=== PATIENT | female | born 1945 | race Caucasian/White ===

== ENCOUNTER → 2016-10-12 | Outpatient (CLI) | payer OTHER ==
[~2016-10-12] MED LIST: ACYC1CAP8 PO; ANAS1TAB19 PO; ATOR10TA88 PO; CEFD300C2 PO; CHOL100010 PO; CHOL2000 PO; CLC100 PO; CYCL60CA PO; DILT-115 PO; DILT-119 PO; DIPH-416 PO; DOCU100C31 PO; DXM/4 PO; FERR1TAB23 PO; LENA10CA3 PO; LPR25 PO; METO25TA56 PO; MGCL40 PO; NYSS5 PO; ONDA-63 PO; OXYC-57 PO; POLY335019 PO; ZOLE1INJ12 INJ; ZVR400 PO; [UNRECOGNIZED DRUG - CODE] PO
--- NOTE | 2016-10-12 15:04 | DIAGNOSTIC IMAGING REPORT ---
LEFT HIP UNILATERAL 2 VIEWS CLINICAL HISTORY: Left hip pain. History of breast carcinoma. COMPARISON: 07/16/2016 DISCUSSION: There is an internally fixated intertrochanteric left hip fracture. This is been fixated with a trochanteric nail and interlocking medullary uri. There is extensive heterotopic ossification. No acute fractures are visualized. No destructive lesions are visualized. IMPRESSION: No significant interval change. Postsurgical changes of an internally fixated intertrochanteric left hip fracture. Extensive heterotopic ossification. Electronically signed by: Miguel Leger M.D. 10/12/2016 3:02 PM Dictated Date/Time: 10/12/2016 3:01 PM
--- NOTE | 2016-10-12 15:07 | DIAGNOSTIC IMAGING REPORT ---
RIGHT HIP 2 VIEWS CLINICAL HISTORY: Right hip pain. History of breast cancer and myeloma. FINDINGS: AP and frog-leg views of the right hip are compared to study dated 07/16/2016. Correlation is made with skeletal survey dated 03/06/2016. The skeletal structures are heterogeneously osteopenic. No fracture is seen. Advanced arthritic change is present in the right hip, with bony sclerosis and subchondral cyst rotation present within the acetabulum and femoral head. There is a large sclerotic/blastic lesion present in the right bony pelvis with cortical irregularity. This is new from 03/06/2016 examination. Numerous small osteolytic lesions are suspected. Sclerotic changes identified in the right sacroiliac joint. Surgical clips are noted in the pelvis. The overlying soft tissues are within normal limits. IMPRESSION: 1. No fracture is identified. 2. Generalized osteopenia with advanced arthritic change noted in the right hip. 3. A large osteoblastic lesion is identified in the right bony pelvis. This is new from the 03/06/2016 examination and highly concerning for metastatic disease. 4. Numerous small osteolytic lesions are suspected. Electronically signed by: Andrew Galloway M.D. 10/12/2016 3:06 PM Dictated Date/Time: 10/12/2016 3:01 PM
== END | disposition home or self-care (01) ==
LOC: C.RAD 14:45
PROVIDERS: ATTEND Internal Medicine Hematology & Oncology
DX: C50.212 Malignant neoplasm of upper-inner quadrant of left female breast (principal); M89.9 Disorder of bone, unspecified; M85.88 Other specified disorders of bone density and structure, other site

== ENCOUNTER 2017-01-03 12:24 | Inpatient (IN) | payer OTHER ==
[~2017-01-03] VITALS: Ht 160 cm; Wt 61.2 kg
[~2017-01-03 12:24] MED LIST changes: +ACYC-57 PO; -ACYC1CAP8 PO; +ATOR10TA82 PO; -ATOR10TA88 PO; -CEFD300C2 PO; -CHOL2000 PO; -CLC100 PO; -CYCL60CA PO; -DILT-119 PO; -DIPH-416 PO; -FERR1TAB23 PO; -LENA10CA3 PO; -METO25TA56 PO; -MGCL40 PO; -NYSS5 PO; -ONDA-63 PO; -ZVR400 PO; -[UNRECOGNIZED DRUG - CODE] PO
--- NOTE | 2017-01-03 12:46 | EMERGENCY ROOM VISIT NOTE ---
History Report prepared by Suman: Isaias Alexander Under the Supervision of: Dr. Briseida Benitez M.D. First contact with patient: 12:31 Chief Complaint: WEAKNESS Stated Complaint: DECREASED APPETITE, DIARRHEA, LEG WEAKNESS History of Present Illness The patient is a 71 year old female who presents to the Emergency Room with complaints of worsening generalized weakness over the past several weeks. The patient feels like she "has no strength." She has not been eating or drinking well. The patient denies fevers, chest pain, shortness of breath, or focal weakness. She is being treated for multiple myeloma. The patient was at the cancer center today when she was referred to the ED. She is currently receiving chemotherapy. The patient denies history of heart disease or diabetes. The patient had a fall last in which she spent 10 hours on the floor. She did not hit her head when she fell, and states that she could not get up because she was feeling too weak. The patient lives alone but has a neighbor that checks on her. Source of History: patient Onset: several weeks ago Position: other (generalized) Quality: other (weakness) Timing: worsening Associated Symptoms: No fevers, No chest pain, No SOB Review of Systems See HPI for pertinent positives & negatives. A total of 10 systems reviewed and were otherwise negative. Past Medical & Surgical Medical Problems: (1) Benign hypertension (2) Biopsy of breast (3) Breast cancer (4) Hyperproteinemia (5) Left knee DJD (6) Osteopenia Family History No pertinent family history Social History Smoking Status: Former Smoker Alcohol Use: occasionally Housing Status: lives alone Occupation Status: employed Current/Historical Medications Scheduled Acyclovir (Acyclovir), 1 TAB PO BID Anastrozole (Arimidex), 1 MG PO QAM Atorvastatin (Lipitor), 1 TAB PO DAILY Cholecalciferol (Vitamin D3), 1 CAP PO DAILY Dexamethasone (Decadron), 4 TAB PO DIRECTED Megestrol Acetate (Megestrol Acetate), 20 ML PO DAILY Metoprolol Tartrate (Lopressor), 25 MG PO BID Ondansetron (Ondansetron HCl), 1 TAB PO BID Zoledronic Acid (Zometa), 4 MG INJ MONTHLY Scheduled PRN Polyethylene Glycol 3350 (Miralax), 17 GM PO DAILY PRN for Constipation Miscellaneous Medications Cyclophosphamide (Cyclophosphamide), 10 CAP PO Cyclophosphamide (Cyclophosphamide), 1 CAP PO Diphenoxylate/Atropine (Lomotil), 1 TAB PO Allergies Coded Allergies: Cat Dander (Unverified Allergy, Unknown, ITCHY EYES STUFFY NOSE, 01/03/17) NO KNOWN DRUG ALLERGIES (Unverified Allergy, Unknown, NONE, 01/03/17) Physical Exam Vital Signs Date Time Temp Pulse Resp B/P (MAP) Pulse Ox O2 Delivery O2 Flow Rate FiO2 01/03/17 14:58 89 01/03/17 14:20 89 18 108/65 93 Room Air 01/03/17 12:27 36.9 108 18 125/77 97 Room Air Physical Exam Vital signs reviewed. General: Chronically ill-appearing elderly female with diffuse atrophy. HEENT: No scleral icterus, PERRLA, neck supple. Atraumatic. Cardiovascular: Regular rate and rhythm, no extra sounds. Pulmonary: Clear to auscultation bilaterally, normal work of breathing. Abdomen: Soft, nontender, nondistended, positive bowel sounds. Musculoskeletal: Atraumatic, no peripheral edema. Neurologic: Patient awake alert and oriented x 3, equal strength in all 4 extremities although has a generalized weakness. Cranial nerves 2 through 12 grossly intact. Skin: Warm, dry, no rash Medical Decision & Procedures ER Provider Diagnostic Interpretation: X-ray results as stated below per interpretation by me and the radiologist: CHEST ONE VIEW PORTABLE CLINICAL HISTORY: weakness COMPARISON STUDY: 01/26/2016 FINDINGS: The cardiac and mediastinal contours remain stable. There is persistent aortic tortuosity. There is an equivocal 17 mm left basilar nodule. A follow-up PA and lateral study is recommended. There is no lobar consolidation.[ IMPRESSION: 17 mm left basilar nodule versus artifact. A follow-up PA and lateral study is recommended. Electronically signed by: Miguel Leger M.D. 01/03/2017 2:09 PM Dictated Date/Time: 01/03/2017 2:07 PM Laboratory Results Test 01/03/17 13:50 01/03/17 13:56 01/03/17 14:25 Nucleated RBC Absolute Count (auto) 0.02 K/uL (0-0) Nucleated Red Blood Cells % 0.4 % Prothrombin Time 10.6 SECONDS (9.0-12.0) Prothromb Time International Ratio 1.0 (0.9-1.1) Activated Partial Thromboplast Time 24.0 SECONDS (21.0-31.0) Partial Thromboplastin Ratio 0.9 Magnesium Level 2.3 mg/dl (1.8-2.4) Total Bilirubin 0.3 mg/dl (0.2-1) Direct Bilirubin < 0.1 mg/dl (0-0.2) Aspartate Amino Transf (AST/SGOT) 9 U/L (15-37) Alanine Aminotransferase (ALT/SGPT) 25 U/L (12-78) Alkaline Phosphatase 95 U/L (45-117) Total Creatine Kinase 18 U/L (26-192) Creatine Kinase MB < 0.5 ng/ml (0.5-3.6) Creatine Kinase MB Ratio (0-3.0) Total Protein 5.3 gm/dl (6.4-8.2) Albumin 2.5 gm/dl (3.4-5.0) 25-Hydroxy Vitamin D Total 16.0 ng/ml (30-100) Bedside Troponin I 0.000 ng/ml (0-0.045) Urine Color YELLOW Urine Appearance CLOUDY (CLEAR) Urine pH 6.5 (4.5-7.5) Urine Specific [place] 1.033 (1.000-1.030) Urine Protein 1+ (NEG) Urine Glucose (UA) 3+ (NEG) Urine Ketones NEG (NEG) Urine Occult Blood NEG (NEG) Urine Nitrite POS (NEG) Urine Bilirubin NEG (NEG) Urine Urobilinogen NEG (NEG) Urine Leukocyte Esterase NEG (NEG) Urine WBC (Auto) 10-30 /hpf (0-5) Urine RBC (Auto) 0-4 /hpf (0-4) Urine Hyaline Casts (Auto) 1-5 /lpf (0-5) Urine Epithelial Cells (Auto) >30 /lpf (0-5) Urine Bacteria (Auto) 4+ (NEG) Urine Renal Epithelial Cells /lpf (0-5) Date/Time Source Procedure Growth Status 01/03/17 14:25 Urine,Catheterized Urine Culture - Final Escherichia Coli Complete Laboratory results per my review. Medications Administered Medications (Trade) Dose Ordered Sig/Colette Route Start Time Stop Time Status Last Admin Dose Admin Sodium Chloride 250 ml @ 999 mls/hr Q16M STAT IV 01/03/17 13:17 01/03/17 13:32 DC 01/03/17 13:17 999 MLS/HR Sodium Chloride 1,000 ml @ 150 mls/hr Q6H40M STAT IV 01/03/17 13:17 01/03/17 18:29 DC 01/03/17 13:17 150 MLS/HR Ceftriaxone Sodium (Rocephin Inj) 1 gm NOW STAT IV 01/03/17 14:49 01/03/17 14:50 DC 01/03/17 15:22 1 GM ECG Indication: weakness Rate (beats per minute): 98 Rhythm: normal sinus Findings: no acute ischemic change, no ectopy, other (likely prevoius inferior infarct) ED Course 1240: Past medical records reviewed. The patient was evaluated in room C8. A complete history and physical examination was performed. 1317: NSS 1000 ml @ 150 mls/hr IV, NSS 250 ml @ 999 mls/hr IV. 1449: Rocephin 1 gm IV. 1520: Updated the patient. 152: Discussed the case with ALANA Golden Hospitalist. The patient will be evaluated. Medical Decision Differential diagnosis: Etiologies such as metabolic, infection, hypo/hyperglycemia, electrolyte abnormalities, cardiac sources, intracerebral event, toxicologic, neurologic, as well as others were entertained. Medication Reconciliation: I attest that I have personally reviewed the patient' s current medication list. Blood Pressure Screening: Patient was found to have normal blood pressure on screening and does not require follow-up. This pt was evaluated and appeared to be in no distress. IV access was obtained and lab work was drawn. Pt was placed on the gambling monitor. IV hydration was initiated. Pt was given IV ceftriaxone after UA is concerning for infection. Lab work reveals no elevation of WBC, an anemia. This is likely c/w multiple myeloma. Pt will be evaluated by the hospitalist service for admission and further management. Pt and family are aware of the plan and agree. Consults Time Called: 1519 Consulting Physician: ALANA Golden Hospitalist Returned Call: 1521 The patient will be evaluated. Impression Primary Impression: Weakness Additional Impression: UTI (urinary tract infection) Scribe Attestation The scribe's documentation has been prepared under my direction and personally reviewed by me in its entirety. I confirm that the note above accurately reflects all work, treatment, procedures, and medical decision making performed by me. Departure Information Dispostion Being Evaluated By Hospitalist Referrals Bret Rodriguez M.D. (PCP) Patient Instructions [facility] Problem Qualifiers
[2017-01-03] MEDS ORDERED: DIPH-416 PO (13:07)
[2017-01-03] MEDS ORDERED: ONDA-63 PO (13:07)
[2017-01-03] MEDS ORDERED: CHOL2000 PO (13:07)
[2017-01-03] MEDS ORDERED: [UNRECOGNIZED DRUG - CODE] PO (13:07)
[2017-01-03] MEDS ORDERED: ZVR400 PO (13:07)
[2017-01-03] MEDS ORDERED: MGCL40 PO (13:07)
[2017-01-03] MEDS ORDERED: CYCL60CA PO (13:07)
[2017-01-03] MEDS ORDERED: SODIUM CHLORIDE 0.9% 250ML 250 ML IV STA (13:17)
[2017-01-03] MEDS ORDERED: SODIUM CHLORIDE 0.9% 1000ML 1,000 ML IV STA (13:17)
[2017-01-03 14:01] LABS: HEMATOCRIT 33.7 % (37-47); MEAN CELL VOLUME 88.9 fL (80-100); MEAN CORPUSCULAR HEMOGLOBIN 27.4 pg (25-34); MEAN CORPUSCULAR HGB CONC 30.9 g/dl (32-36); MEAN PLATELET VOLUME 10.5 fL (7.4-10.4); PLATELET COUNT 170 K/uL (130-400); RED BLOOD COUNT 3.79 M/uL (4.2-5.4); WHITE BLOOD COUNT 5.64 K/uL (4.8-10.8)
--- NOTE | 2017-01-03 14:10 | DIAGNOSTIC IMAGING REPORT ---
CHEST ONE VIEW PORTABLE CLINICAL HISTORY: weakness COMPARISON STUDY: 01/26/2016 FINDINGS: The cardiac and mediastinal contours remain stable. There is persistent aortic tortuosity. There is an equivocal 17 mm left basilar nodule. A follow-up PA and lateral study is recommended. There is no lobar consolidation.[ IMPRESSION: 17 mm left basilar nodule versus artifact. A follow-up PA and lateral study is recommended. Electronically signed by: Miguel Leger M.D. 01/03/2017 2:09 PM Dictated Date/Time: 01/03/2017 2:07 PM
[2017-01-03 14:18] LABS: ALT/SGPT 25 U/L (12-78); BLOOD UREA NITROGEN 24 mg/dl (7-18); BUN/CREATININE RATIO 38.6 (10-20); CARBON DIOXIDE 25 mmol/L (21-32); CHLORIDE 106 mmol/L (98-107); CREATININE 0.63 mg/dl (0.60-1.20); GLUCOSE 171 mg/dl (70-99); MAGNESIUM 2.3 mg/dl (1.8-2.4); POTASSIUM 3.5 mmol/L (3.5-5.1); SODIUM 140 mmol/L (136-145)
[2017-01-03 14:23] LABS: ALKALINE PHOSPHATASE 95 U/L (45-117); AST/SGOT 9 U/L (15-37)
[2017-01-03 14:28] LABS: ANISOCYTOSIS PRESENT; BASO % 0.4 %; BASO ABS # 0.02 K/uL (0-0.2); COMPLETE YES; EOS % 0.2 %; IG% 1.8 %; LYMPH % 1.2 %; LYMPH ABS # 0.07 K/uL (1.2-3.4); NEUT % 94.4 %; TOXIC GRANULATION 3+
[2017-01-03] MEDS ORDERED: CEFTRIAXONE SOD INJ 1 GM ADDVIAL IV STA (14:49)
[2017-01-03 14:56] LABS: CALCIUM 8.4 mg/dl (8.5-10.1)
[2017-01-03 15:09] LABS: URINE APPEARANCE CLOUDY (CLEAR); URINE BILIRUBIN NEG (NEG); URINE COLOR YELLOW; URINE EPITHELIAL CELL AUTO >30 /lpf (0-5); URINE NITRITE POS (NEG); URINE PH 6.5 (4.5-7.5); URINE SPECIFIC GRAVITY 1.033 (1.000-1.030); UROBILINOGEN NEG (NEG); ZZURINE CULT IF INDIC CATH YES
[2017-01-03 15:18] LABS: MANUAL MICROSCOPIC REQUIRED? NO; REVIEW REQ? YES
[2017-01-03] MEDS ORDERED: DEXAMETHASONE 4 MG TAB PO SCH (16:15)
[2017-01-03] MEDS ORDERED: ACETAMINOPHEN 325 MG TAB PO PRN (16:15)
[2017-01-03] MEDS ORDERED: ONDANSETRON INJ 2 MG/ML 2 ML VIAL IV PRN (16:15)
--- NOTE | 2017-01-03 16:38 | History and Physical ---
History & Physical Date & Time of Service: Jan 03, 2017 at 16:27 Chief Complaint: Decreased Appetite, Diarrhea, Leg Weakness Primary Care Physician: Bret Rodriguez M.D. History of Present Illness Source: patient Pt is a 71 yo female who presents to ER with worsening weakness over past several weeks. Pt has a hx of multiple myeloma and has been undergoing treatments for past few weeks as she was diagnosed with MM last yr. Pt reports gradual weakness and states this AM, she had to lift her leg to get out of bed. Pt utilizes walker at home. Pt also reports poor appetite and states she has recently been started on megace. Pt follows with Dr Grace at the cancer center for the treatments and was actually due for a treatment today when pt was noted to be too weak. Pt denies any fevers, chills, but reports occasional N/V at home. No urinary sx, productive cough, abd pain or chest pain. Past Medical/Surgical History Medical Problems: (1) Benign hypertension Status: Chronic (2) Biopsy of breast Status: Resolved (3) Breast cancer Permanent Comment: Abnormal left breast mammogram Biopsy positive for invasive carcinoma 04/01/2013 grade 3 Vane receptor positive progesterone receptor positive HER-2/clark negative Status post partial mastectomy and sentinel lymph node biopsy Pathologic stage [id number] Oncotype DX score of 16 Status post completion of radiation therapy utilizing accelerated partial breast treatment completed 06/26/2013 received 3850 cGy Ongoing treatment with Arimidex Status: Resolved (4) Osteopenia Status: Chronic Family History No pertinent family history Social History Smoking Status: Former Smoker Occupational Status: employed Immunizations History of Influenza Vaccine: No History of Tetanus Vaccine?: UTD History of Pneumococcal: Yes History of Hepatitis B Vaccine: No Multi-Drug Resistant Organisms History of MDRO: No Allergies Coded Allergies: Cat Dander (Unverified Allergy, Unknown, ITCHY EYES STUFFY NOSE, 01/03/17) NO KNOWN DRUG ALLERGIES (Unverified Allergy, Unknown, NONE, 01/03/17) Home Medications Scheduled Acyclovir (Acyclovir), 1 TAB PO BID Anastrozole (Arimidex), 1 MG PO QAM Atorvastatin (Lipitor), 1 TAB PO DAILY Cholecalciferol (Vitamin D3), 1 CAP PO DAILY Dexamethasone (Decadron), 4 TAB PO DIRECTED Megestrol Acetate (Megestrol Acetate), 20 ML PO DAILY Metoprolol Tartrate (Lopressor), 25 MG PO BID Ondansetron (Ondansetron HCl), 1 TAB PO BID Zoledronic Acid (Zometa), 4 MG INJ MONTHLY Scheduled PRN Polyethylene Glycol 3350 (Miralax), 17 GM PO DAILY PRN for Constipation Miscellaneous Medications Cyclophosphamide (Cyclophosphamide), 10 CAP PO Cyclophosphamide (Cyclophosphamide), 1 CAP PO Diphenoxylate/Atropine (Lomotil), 1 TAB PO Review of Systems Constitutional: + weakness, + fatigue, No fever, No chills, No sweats, No weight loss ENT: No hearing loss, No unusual epistaxis, No nasal symptoms, No sore throat Respiratory: No cough, No sputum, No wheezing, No shortness of breath Cardiovascular: No chest pain, No orthopnea, No PND, No edema Abdomen: + nausea, No pain, No vomiting, No diarrhea, No constipation Musculoskeletal: No muscle pain, No swelling, No calf pain Genitourinary - Female: No dysuria, No urinary frequency, No urinary urgency, No urinary incontinence Neurologic: No memory loss, No paralysis, No weakness, No numbness/tingling Psychiatric: No depression symptoms, No anhedonism, No anxiety, No insomnia Endocrine: No fatigue, No excessive thirst Integumentary: No rash, No itch, No new/changing skin lesions, No color change Physical Exam Vital Signs Date Time Temp Pulse Resp B/P (MAP) Pulse Ox O2 Delivery O2 Flow Rate FiO2 01/03/17 16:13 93 16 113/63 90 Room Air 01/03/17 14:58 89 01/03/17 14:20 89 18 108/65 93 Room Air 01/03/17 12:27 36.9 108 18 125/77 97 Room Air General Appearance: WD/WN, no apparent distress Eyes: normal inspection, PERRL, EOMI, sclerae normal Neck: supple, no adenopathy, thyroid normal, no JVD Respiratory/Chest: chest non-tender, lungs clear, normal breath sounds, no respiratory distress Cardiovascular: regular rate, rhythm, no edema, no gallop, no JVD Abdomen/GI: normal bowel sounds, non tender, soft, no organomegaly Back: normal inspection, no CVA tenderness, no muscle spasm, normal range of motion Extremities/Musculoskelatal: normal inspection, no calf tenderness, normal capillary refill, no pedal edema 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2 % Monocytes (%) (Auto) 2.0 % Eosinophils (%) (Auto) 0.2 % Basophils (%) (Auto) 0.4 % Neutrophils # (Auto) 5.33 1.4-6.5 K/uL Lymphocytes # (Auto) 0.07 1.2-3.4 K/uL Monocytes # (Auto) 0.11 0.11-0.59 K/uL Eosinophils # (Auto) 0.01 0-0.5 K/uL Basophils # (Auto) 0.02 0-0.2 K/uL RDW Standard Deviation 61.3 36.4-46.3 fL RDW Coefficient of Variation 19.2 11.5-14.5 % Immature Granulocyte % (Auto) 1.8 % Immature Granulocyte # (Auto) 0.10 0.00-0.02 K/uL Nucleated RBC Absolute Count (auto) 0.02 0-0 K/uL Nucleated Red Blood Cells % 0.4 % Toxic Granulation 3+ Anisocytosis PRESENT Sodium Level 140 136-145 mmol/L Potassium Level 3.5 3.5-5.1 mmol/L Chloride Level 106 98-107 mmol/L Carbon Dioxide Level 25 21-32 mmol/L Anion Gap 9.0 3-11 mmol/L Blood Urea Nitrogen 24 7-18 mg/dl Creatinine 0.63 0.60-1.20 mg/dl Est Creatinine Clear Calc Drug Dose 69.7 ml/min Estimated GFR () 103.9 Estimated GFR (Non- 89.6 BUN/Creatinine Ratio 38.6 10-20 Random Glucose 171 70-99 mg/dl Calcium Level 8.4 8.5-10.1 mg/dl Magnesium Level 2.3 1.8-2.4 mg/dl Total Bilirubin 0.3 0.2-1 mg/dl Direct Bilirubin < 0.1 0-0.2 mg/dl Aspartate Amino Transf (AST/SGOT) 9 15-37 U/L Alanine Aminotransferase (ALT/SGPT) 25 12-78 U/L Alkaline Phosphatase 95 45-117 U/L Total Creatine Kinase 18 26-192 U/L Creatine Kinase MB < 0.5 0.5-3.6 ng/ml Creatine Kinase MB Ratio 0-3.0 Total Protein 5.3 6.4-8.2 gm/dl Albumin 2.5 3.4-5.0 gm/dl Bedside Troponin I 0.000 0-0.045 ng/ml Urine Color YELLOW Urine Appearance CLOUDY CLEAR Urine pH 6.5 4.5-7.5 Urine Specific [place] 1.033 1.000-1.030 Urine Protein 1+ NEG Urine Glucose (UA) 3+ NEG Urine Ketones NEG NEG Urine Occult Blood NEG NEG Urine Nitrite POS NEG Urine Bilirubin NEG NEG Urine Urobilinogen NEG NEG Urine Leukocyte Esterase NEG NEG Urine WBC (Auto) 10-30 0-5 /hpf Urine RBC (Auto) 0-4 0-4 /hpf Urine Hyaline Casts (Auto) 1-5 0-5 /lpf Urine Epithelial Cells (Auto) >30 0-5 /lpf Urine Bacteria (Auto) 4+ NEG Urine Renal Epithelial Cells 0-5 /lpf Microbiology Results 01/03/17 Urine Culture, Received Pending Impression Assessment and Plan Pt is a 71 yo female who is currently undergoing treatments for her MM presents with progressive weakness/decreased appetite over past few weeks Generalized weakness likely multifactorial from treatments in addition to deconditioning/?UTI and poor nutrition. Will consult PT/OT and dietary. Cont boost with all meals. Also cont megace which pt has recently been started on at home in addition to IVF. Will obtain urine cx and start on levaquin 750 mg IV daily. Will also obtain vit D level with hx of vit D def Mult myeloma - Consult Dr Grace regarding future tx. Dyslipidemia - Cont statin Hx of breast cancer - cont arimidex DVT ppx with heparin Pt is FULL CODE VTE Prophylaxis VTE Risk Assessment Done? Y/N: Yes Risk Level: Moderate
[2017-01-03 17:30] VITALS: BP 112/68; PULSE 96; TEMP 36.9; O2SAT 93; BMI 23.2
[2017-01-03] MEDS ORDERED: BOOST VANILLA PO SCH ×2 (17:40)
[2017-01-03] MEDS ORDERED: NURSING VERBAL MED ORDER ONE (18:45)
[2017-01-03 18:47] LABS: PARTIAL THROMBOPLASTIN RATIO 0.9; PROTHROMBIN TIME (PATIENT) 10.6 SECONDS (9.0-12.0)
[2017-01-03 19:08] VITALS: BP 102/67; PULSE 95; TEMP 36.6; O2SAT 90
[2017-01-03] MEDS: METOPROLOL TARTRATE 25 MG TAB PO SCH (20:24)
[2017-01-03] MEDS: LEVOFLOXACIN / D5W 750 MG in PREMIXED IN D5W 150 ML IV SCH (20:24)
[2017-01-03 20:25] VITALS: BP 122/75; PULSE 101
[2017-01-03] MEDS: MEGESTROL ACETATE 800 MG/20 ML UDP PO SCH (20:25)
[2017-01-03] MEDS: ACYCLOVIR 400 MG TAB PO SCH (20:25)
[2017-01-03] MEDS: HEPARIN SOD 5000 UNIT/0.5 ML CARP SQ SCH (22:14)
[2017-01-04] VITALS (8 sets, daily range): BP systolic 104–121; BP diastolic 66–77; PULSE 83–114; TEMP 36.8–37; O2SAT 92–95; BMI 23.0
[2017-01-04 05:47] LABS: HEMATOCRIT 29.2 % (37-47); MEAN CORPUSCULAR HEMOGLOBIN 28.7 pg (25-34); MEAN CORPUSCULAR HGB CONC 32.2 g/dl (32-36); MEAN PLATELET VOLUME 11.1 fL (7.4-10.4); PLATELET COUNT 167 K/uL (130-400); RED BLOOD COUNT 3.28 M/uL (4.2-5.4); WHITE BLOOD COUNT 5.22 K/uL (4.8-10.8)
[2017-01-04] MEDS: HEPARIN SOD 5000 UNIT/0.5 ML CARP SQ SCH ×3 (06:09→21:57)
[2017-01-04 06:14] LABS: ANISOCYTOSIS PRESENT; COMPLETE YES; DOHLE BODIES 1+; EOS % 0.2 %; IG% 1.9 %; LARGE PLATELETS 1+; LYMPH % 0.8 %; LYMPH ABS # 0.04 K/uL (1.2-3.4); MONO % 1.3 %; NEUT % 95.8 %; TOXIC GRANULATION 3+; VACUOLIZATION 1+
[2017-01-04 06:26] LABS: CREATININE 0.45 mg/dl (0.60-1.20)
[2017-01-04 06:27] LABS: BUN/CREATININE RATIO 41.1 (10-20); CALCIUM 7.7 mg/dl (8.5-10.1); POTASSIUM 3.4 mmol/L (3.5-5.1)
[2017-01-04] MEDS: ACYCLOVIR 400 MG TAB PO SCH ×2 (08:10→19:33)
[2017-01-04] MEDS: CHOLECALCIFEROL 1000 INTER.UNIT TAB PO SCH (08:11)
[2017-01-04] MEDS: METOPROLOL TARTRATE 25 MG TAB PO SCH ×2 (08:11→19:33)
[2017-01-04] MEDS: ATORVASTATIN 10 MG TAB PO SCH (08:11)
[2017-01-04] MEDS: ANASTROZOLE 1 MG TAB PO SCH (08:25)
[2017-01-04] MEDS: BOOST VANILLA PO SCH ×6 (08:30→17:00)
[2017-01-04] MEDS ORDERED: POTASSIUM CHLORIDE 10 MEQ TABCR PO STA (08:43)
[2017-01-04] MEDS: MEGESTROL ACETATE 800 MG/20 ML UDP PO SCH (10:39)
--- NOTE | 2017-01-04 10:50 | Medical Student: [facility] ---
Med Student Progress Note Date of Service Jan 04, 2017. Subjective Pt evaluation today including: conversation w/ patient, conversation w/ family (daughter), physical exam, chart review Pain: 0 PO Intake: poor Voiding: no voiding problems, no incontinence (but feelings of not emptying bladder) Ms Maria Esther Toro is a 71 yo female currently undergoing treatment for multiple myeloma at our cancer center who has become progressively weak over the past several weeks. She was due for another treatment yesterday, but was instead admitted due to profound weakness, fatigue, and loss of appetite. She can no longer walk around, and is wheelchair dependent. She is reliant on friends and home health for ADLs including bathing, changing clothing, cooking. She lives alone. Her daughter lives in [place]. She is unsure whether the weakness or loss of appetite occurred first, but notes they each make the other worse. She denies nausea, vomiting, headache, cough, shortness of breath, diarrhea, constipation, or chest pain. She is resting comfortably this morning. She ate some of her breakfast (<50%) and had some roast beef and mashed potatoes last night. She was started on megestrol two nights ago and notes some improvement in her appetite with the medication. She is fearful of returning to her home. Review of Systems Constitutional: + see HPI, + weakness, + fatigue, No fever, No chills, No sweats, No weight loss Eyes: No problem reported ENT: No problem reported Respiratory: No problem reported Cardiac: No problem reported Breast: No problem reported Abdomen: + problem reported (loss of appetite) Musculoskeletal: No problem reported Female : No problem reported Neurologic: No problem reported Psychiatric: No problem reported Heme: No problem reported Endo: No problem reported Skin: No problem reported Objective Vital Signs Date Time Temp Pulse Resp B/P (MAP) Pulse Ox O2 Delivery O2 Flow Rate FiO2 01/04/17 07:20 36.8 99 18 120/73 (89) 92 Room Air 01/04/17 03:46 36.9 88 18 113/66 (82) 94 Room Air 01/04/17 00:03 37.0 83 20 104/66 (79) 95 Room Air 01/03/17 23:59 Room Air 01/03/17 20:25 101 122/75 (91) 01/03/17 19:08 36.6 95 20 102/67 (79) 90 Room Air 01/03/17 17:30 36.9 96 16 112/68 93 Room Air 01/03/17 17:10 100 20 119/83 92 Room Air 01/03/17 16:13 93 16 113/63 90 Room Air 01/03/17 14:58 89 01/03/17 14:20 89 18 108/65 93 Room Air 01/03/17 12:27 36.9 108 18 125/77 97 Room Air Physical Exam Comments: Vitals: See above. Borderline tachycardia. General: Elderly female, tired appearing. No acute distress. HEENT: NCAT, EOMI, PERRLA. MMM. No anterior or posterior cervical lymphadenopathy. CV: Normal S1, S2. No MRG. Borderline tachycardic. Resp: Lungs clear to auscultation in upper and lower lobes bilaterally. Extremities: 4/5 strength in upper extremities, 3+/5 in lower extremities. Psych: Appears mildly depressed, but states no depression. Not anxious. AOx3 Laboratory Results Last 24 Hours Test 01/03/17 13:50 01/03/17 13:56 01/03/17 14:25 01/04/17 05:15 White Blood Count 5.64 K/uL 5.22 K/uL Red Blood Count 3.79 M/uL 3.28 M/uL Hemoglobin 10.4 g/dL 9.4 g/dL Hematocrit 33.7 % 29.2 % Mean Corpuscular Volume 88.9 fL 89.0 fL Mean Corpuscular Hemoglobin 27.4 pg 28.7 pg Mean Corpuscular Hemoglobin Concent 30.9 g/dl 32.2 g/dl Platelet Count 170 K/uL 167 K/uL Mean Platelet Volume 10.5 fL 11.1 fL Neutrophils (%) (Auto) 94.4 % 95.8 % Lymphocytes (%) (Auto) 1.2 % 0.8 % Monocytes (%) (Auto) 2.0 % 1.3 % Eosinophils (%) (Auto) 0.2 % 0.2 % Basophils (%) (Auto) 0.4 % 0.0 % Neutrophils # (Auto) 5.33 K/uL 5.00 K/uL Lymphocytes # (Auto) 0.07 K/uL 0.04 K/uL Monocytes # (Auto) 0.11 K/uL 0.07 K/uL Eosinophils # (Auto) 0.01 K/uL 0.01 K/uL Basophils # (Auto) 0.02 K/uL 0.00 K/uL RDW Standard Deviation 61.3 fL 62.0 fL RDW Coefficient of Variation 19.2 % 19.5 % Immature Granulocyte % (Auto) 1.8 % 1.9 % Immature Granulocyte # (Auto) 0.10 K/uL 0.10 K/uL Nucleated RBC Absolute Count (auto) 0.02 K/uL Nucleated Red Blood Cells % 0.4 % Toxic Granulation 3+ 3+ Anisocytosis PRESENT PRESENT Prothrombin Time 10.6 SECONDS Prothromb Time International Ratio 1.0 Activated Partial Thromboplast Time 24.0 SECONDS Partial Thromboplastin Ratio 0.9 Sodium Level 140 mmol/L 141 mmol/L Potassium Level 3.5 mmol/L 3.4 mmol/L Chloride Level 106 mmol/L 109 mmol/L Carbon Dioxide Level 25 mmol/L 26 mmol/L Anion Gap 9.0 mmol/L 6.0 mmol/L Blood Urea Nitrogen 24 mg/dl 18 mg/dl Creatinine 0.63 mg/dl 0.45 mg/dl Est Creatinine Clear Calc Drug Dose 69.7 ml/min 93.4 ml/min Estimated GFR () 103.9 116.0 Estimated GFR (Non- 89.6 100.1 BUN/Creatinine Ratio 38.6 41.1 Random Glucose 171 mg/dl 90 mg/dl Calcium Level 8.4 mg/dl 7.7 mg/dl Magnesium Level 2.3 mg/dl Total Bilirubin 0.3 mg/dl Direct Bilirubin < 0.1 mg/dl Aspartate Amino Transf (AST/SGOT) 9 U/L Alanine Aminotransferase (ALT/SGPT) 25 U/L Alkaline Phosphatase 95 U/L Total Creatine Kinase 18 U/L Creatine Kinase MB < 0.5 ng/ml Creatine Kinase MB Ratio Total Protein 5.3 gm/dl Albumin 2.5 gm/dl 25-Hydroxy Vitamin D Total 16.0 ng/ml Bedside Troponin I 0.000 ng/ml Urine Color YELLOW Urine Appearance CLOUDY Urine pH 6.5 Urine Specific [place] 1.033 Urine Protein 1+ Urine Glucose (UA) 3+ Urine Ketones NEG Urine Occult Blood NEG Urine Nitrite POS Urine Bilirubin NEG Urine Urobilinogen NEG Urine Leukocyte Esterase NEG Urine WBC (Auto) 10-30 /hpf Urine RBC (Auto) 0-4 /hpf Urine Hyaline Casts (Auto) 1-5 /lpf Urine Epithelial Cells (Auto) >30 /lpf Urine Bacteria (Auto) 4+ Urine Renal Epithelial Cells /lpf Toxic Vacuolation 1+ Dohle Bodies 1+ Large Platelets 1+ Hepatitis C Antibody Screen NEG Assessment and Plan Assessment and Plan: Ms Maria Esther Toro is a 71 yo female undergoing treatment for multiple myeloma with progressive fatigue over the past several weeks. She was admitted yesterday and has had some increase in appetite since admission. Assessment and plan are as follows: 1. Fatigue: Secondary to lack of appetite and tx for multiple myeloma. Will continue megestrol acetate 800mg dailiy for appetite stimulation, will conitnue with chocolate boost with meals. Acutely dehydrated with BUN: Creat 41. Will continue IV normal saline with 20meq Kcl. Patient is wheelchair dependent. PT/ OT evals. Discharge to [facility] following PT/OT evals and insurance approval. 2. Multiple Myeloma: Active, treatment held. Will defer to Dr. Ness. Continue prophylactic acyclovir 400mg bid. 3. History of breast cancer: Continue anastrazole 1mg qam. 4. Hyperlipidemia: Continue lipitor 10mg qd. 5. Hypovitaminosis D: 50,000 units given, continue weekly. Continue with 2000iu daily. 6. Persistent Tachycardia: Continue metoprolol tartrate 25mg bid. 7. UTI: Currently no dysuria, some feeling of not emptying bladder. Will get bladder scan. Continue levofloxacin 750mg qd pending culture results. 8. Anemia of chronic disease: Secondary to MM. H&H dropped slightly yesterday, likely due to hemodilution. Will continue to trend. 8. DVT Proph: Heparin 5000units q8 sq. 9. Dispo: Discharge to [facility] pending approval and PT/OT evals. Defer MM treatment to Dr. Ness, Heme/Onc. Normal meals as tolerated. Continued [facility] stay due to: inadequate po fluid intake, home environment unsafe for pt Discharge planning: rehab hospital
--- NOTE | 2017-01-04 11:03 | Progress Note ---
Subjective Date of Service: Jan 04, 2017. Subjective Pt evaluation today including: conversation w/ patient, physical exam, lab review, review of inpatient medication list Pain: no pain PO Intake: slight improvement Voiding: voiding difficulty (incomplete emptying? always needs to urinate) patient laying in bed, daughter at the bedside patient is profoundly weak, wants to go to rehab, cannot return home her appetite is getting a little better, just started the Megace also, c/o always needing to urinate, feels like maybe not emptying bladder discussed that we would obtain a bladder scan Problem List Medical Problems: (1) Dehydration Status: Acute (2) Fall Status: Acute (3) Intertrochanteric fracture of left femur Status: Acute (4) Left hip pain Status: Acute (5) UTI (urinary tract infection) Status: Acute (6) Weakness Status: Acute (7) Weakness Status: Acute Review of Systems Constitutional: + weakness, + fatigue Abdomen: + problem reported (poor appetite) Female : + urinary frequency, + problem reported (incomplete emptying?) All Other Systems: Reviewed and Negative Medications Current Inpatient Medications Medications (Trade) Dose Ordered Sig/Colette Route Start Time Stop Time Status Last Admin Dose Admin Heparin Sodium (Porcine) (Heparin Sq 5000 Unit/0.5ml) 5,000 unit Q8H SQ 01/03/17 22:00 02/02/17 21:59 01/04/17 06:09 5,000 UNIT Acetaminophen (Tylenol Tab) 650 mg Q4H PRN PO 01/03/17 16:15 02/02/17 16:14 Ondansetron HCl (Zofran Inj) 4 mg Q6H PRN IV 01/03/17 16:15 02/02/17 16:14 Acyclovir (Zovirax Tab) 400 mg BID PO 01/03/17 20:00 02/02/17 20:59 01/04/17 08:10 400 MG Anastrozole (Arimidex Tab) 1 mg QAM PO 01/04/17 08:00 02/03/17 08:59 01/04/17 08:25 1 MG Atorvastatin Calcium (Lipitor Tab) 10 mg DAILY PO 01/04/17 08:00 02/03/17 08:59 01/04/17 08:11 10 MG Dexamethasone (Decadron Tab) 16 mg UD PO 01/03/17 16:15 02/02/17 16:14 Future Hold Megestrol Acetate (Megace Susp) 800 mg DAILY PO 01/04/17 08:00 02/03/17 08:59 01/04/17 10:39 800 MG Metoprolol Tartrate (Lopressor Tab) 25 mg BID PO 01/03/17 20:00 02/02/17 20:59 01/04/17 08:11 25 MG Cholecalciferol (Vitamin D Tab) 2,000 inter.unit DAILY PO 01/04/17 08:00 02/03/17 08:59 01/04/17 08:11 2,000 INTER.UNIT Levofloxacin 750 mg/Prmx 150 ml @ 100 mls/hr DAILY@1900 IV 01/03/17 19:00 01/08/17 18:59 01/03/17 20:24 100 MLS/HR Enteral Nutritional Formula (Boost) 1 can TIDM PO 01/04/17 08:00 02/03/17 07:59 Ergocalciferol (Vitamin D Cap) 50,000 interunit TODAY@1200 ONCE PO 01/04/17 12:00 01/04/17 12:01 Potassium Chloride/Sodium Chloride 1,000 ml @ 100 mls/hr Q10H IV 01/04/17 09:45 02/03/17 09:44 UNV Objective Vital Signs Date Time Temp Pulse Resp B/P (MAP) Pulse Ox O2 Delivery O2 Flow Rate FiO2 01/04/17 07:20 36.8 99 18 120/73 (89) 92 Room Air 01/04/17 03:46 36.9 88 18 113/66 (82) 94 Room Air 01/04/17 00:03 37.0 83 20 104/66 (79) 95 Room Air 01/03/17 23:59 Room Air 01/03/17 20:25 101 122/75 (91) 01/03/17 19:08 36.6 95 20 102/67 (79) 90 Room Air 01/03/17 17:30 36.9 96 16 112/68 93 Room Air 01/03/17 17:10 100 20 119/83 92 Room Air 01/03/17 16:13 93 16 113/63 90 Room Air 01/03/17 14:58 89 01/03/17 14:20 89 18 108/65 93 Room Air 01/03/17 12:27 36.9 108 18 125/77 97 Room Air Physical Exam General Appearance: WD/WN, no apparent distress Neck: supple, no adenopathy, no JVD, trachea midline Respiratory/Chest: chest non-tender, lungs clear, normal breath sounds, no respiratory distress, no accessory muscle use Cardiovascular: regular rate, rhythm, no edema, no gallop, no JVD, no murmur Abdomen: normal bowel sounds, non tender, soft, no organomegaly Extremities: normal range of motion, non-tender, normal inspection, no pedal edema, no calf tenderness 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, alert, normal mood/affect, oriented x 3, + abnormal gait, + motor weakness Skin: normal color, warm/dry, no rash Lymphatic: no adenopathy Laboratory Results Last 24 Hours Test 01/03/17 13:50 01/03/17 13:56 01/03/17 14:25 01/04/17 05:15 White Blood Count 5.64 K/uL 5.22 K/uL Red Blood Count 3.79 M/uL 3.28 M/uL Hemoglobin 10.4 g/dL 9.4 g/dL Hematocrit 33.7 % 29.2 % Mean Corpuscular Volume 88.9 fL 89.0 fL Mean Corpuscular Hemoglobin 27.4 pg 28.7 pg Mean Corpuscular Hemoglobin Concent 30.9 g/dl 32.2 g/dl Platelet Count 170 K/uL 167 K/uL Mean Platelet Volume 10.5 fL 11.1 fL Neutrophils (%) (Auto) 94.4 % 95.8 % Lymphocytes (%) (Auto) 1.2 % 0.8 % Monocytes (%) (Auto) 2.0 % 1.3 % Eosinophils (%) (Auto) 0.2 % 0.2 % Basophils (%) (Auto) 0.4 % 0.0 % Neutrophils # (Auto) 5.33 K/uL 5.00 K/uL Lymphocytes # (Auto) 0.07 K/uL 0.04 K/uL Monocytes # (Auto) 0.11 K/uL 0.07 K/uL Eosinophils # (Auto) 0.01 K/uL 0.01 K/uL Basophils # (Auto) 0.02 K/uL 0.00 K/uL RDW Standard Deviation 61.3 fL 62.0 fL RDW Coefficient of Variation 19.2 % 19.5 % Immature Granulocyte % (Auto) 1.8 % 1.9 % Immature Granulocyte # (Auto) 0.10 K/uL 0.10 K/uL Nucleated RBC Absolute Count (auto) 0.02 K/uL Nucleated Red Blood Cells % 0.4 % Toxic Granulation 3+ 3+ Anisocytosis PRESENT PRESENT Prothrombin Time 10.6 SECONDS Prothromb Time International Ratio 1.0 Activated Partial Thromboplast Time 24.0 SECONDS Partial Thromboplastin Ratio 0.9 Sodium Level 140 mmol/L 141 mmol/L Potassium Level 3.5 mmol/L 3.4 mmol/L Chloride Level 106 mmol/L 109 mmol/L Carbon Dioxide Level 25 mmol/L 26 mmol/L Anion Gap 9.0 mmol/L 6.0 mmol/L Blood Urea Nitrogen 24 mg/dl 18 mg/dl Creatinine 0.63 mg/dl 0.45 mg/dl Est Creatinine Clear Calc Drug Dose 69.7 ml/min 93.4 ml/min Estimated GFR () 103.9 116.0 Estimated GFR (Non- 89.6 100.1 BUN/Creatinine Ratio 38.6 41.1 Random Glucose 171 mg/dl 90 mg/dl Calcium Level 8.4 mg/dl 7.7 mg/dl Magnesium Level 2.3 mg/dl Total Bilirubin 0.3 mg/dl Direct Bilirubin < 0.1 mg/dl Aspartate Amino Transf (AST/SGOT) 9 U/L Alanine Aminotransferase (ALT/SGPT) 25 U/L Alkaline Phosphatase 95 U/L Total Creatine Kinase 18 U/L Creatine Kinase MB < 0.5 ng/ml Creatine Kinase MB Ratio Total Protein 5.3 gm/dl Albumin 2.5 gm/dl 25-Hydroxy Vitamin D Total 16.0 ng/ml Bedside Troponin I 0.000 ng/ml Urine Color YELLOW Urine Appearance CLOUDY Urine pH 6.5 Urine Specific [place] 1.033 Urine Protein 1+ Urine Glucose (UA) 3+ Urine Ketones NEG Urine Occult Blood NEG Urine Nitrite POS Urine Bilirubin NEG Urine Urobilinogen NEG Urine Leukocyte Esterase NEG Urine WBC (Auto) 10-30 /hpf Urine RBC (Auto) 0-4 /hpf Urine Hyaline Casts (Auto) 1-5 /lpf Urine Epithelial Cells (Auto) >30 /lpf Urine Bacteria (Auto) 4+ Urine Renal Epithelial Cells /lpf Toxic Vacuolation 1+ Dohle Bodies 1+ Large Platelets 1+ Hepatitis C Antibody Screen NEG Assessment and Plan Pt is a 71 yo female who is currently undergoing treatments for her MM presents with progressive weakness/decreased appetite over past few weeks - Generalized weakness: multifactorial from MM chemotherapy, poor nutrition, UTI PT/OT consults, plan for rehab on d/c - UTI: E coli, continue Levaquin, follow up final sensitivities pt c/o frequent urge to urinate, may not be emptying bladder, check bladder scan, straight cath PRN - Vitamin D deficiency: 50,000 units given, plan for weekly treatment - Hypokalemia: 3.4 today, gave 20mEq PO x 1 and added 20 mEq to IV fluids - MM: follows with Dr. Grace - Hx of breast cancer - cont Arimidex DVT ppx with heparin Pt is FULL CODE Continued [facility] stay due to: inadequate po fluid intake, home environment unsafe for pt Discharge planning: rehab hospital
[2017-01-04] MEDS ORDERED: ERGOCALCIFEROL 50,000 INTER.UNIT CAP PO ONE (12:00)
[2017-01-04] MEDS: NSS + 20MEQ KCL 1000ML 1,000 ML IV SCH ×2 (12:34→23:00)
[2017-01-04] MEDS: LEVOFLOXACIN / D5W 750 MG in PREMIXED IN D5W 150 ML IV SCH (19:32)
[2017-01-04] MEDS ORDERED: BOOST VANILLA PO SCH ×2 (20:00)
--- NOTE | 2017-01-04 20:51 | ONCOLOGY CONSULTATION ---
DATE OF CONSULTATION: 01/04/2017 REASON FOR CONSULTATION: Generalized weakness. HISTORY OF PRESENT ILLNESS: Maria Esther is a pleasant 71-year-old female patient well known to [facility] with the diagnosis stage IIIA multiple myeloma established in January of 2016. The patient was in the midst of receiving a combination cyclophosphamide, bortezomib and dexamethasone. On the day of admission represented cycle 2, day 15. In the clinic, Maria Esther complained that she was profoundly weak and just overall not feeling well. It was decided at that time to hold that day's chemotherapy and send her to the Emergency Room for evaluation. On admission, she related poor appetite and had been recently started on Megace. She denied fevers, chills or sweats. She was not experiencing chest pain, shortness of breath, dyspnea or cough. Interestingly, she denied any urinary symptoms yet her urinalysis on admission is suggestive of an underlying UTI. She was subsequently placed on the oncology floor receiving IV hydration and Levaquin intravenously. PAST MEDICAL HISTORY: Again, significant for multiple myeloma, history of breast cancer, hypertension and osteopenia. MEDICATIONS: Prior to admission, acyclovir 400 mg p.o. b.i.d., anastrozole 1 mg p.o. every day, atorvastatin 1 tablet p.o. every day, cholecalciferol 1 tablet p.o. every day, dexamethasone 40 mg p.o. daily as instructed, Megace 20 mL p.o. every day, metoprolol 25 mg p.o. b.i.d., Zofran 1 tablet p.o. p.r.n. q. 8 hours for nausea, Zometa 4 mg IV monthly. ALLERGIES: CAT DANDER. SOCIAL HISTORY: The patient is a nonsmoker, nondrinker. FAMILY HISTORY: Noncontributory. REVIEW OF SYSTEMS: CONSTITUTIONAL: Most notably for generalized weakness and poor appetite. No fevers, chills or sweats. SKIN: No rashes or lesions. No history of dermatoses. HEENT: Denies headaches, lightheadedness or dizziness. No visual or hearing deficits. No sinus symptoms, sore throat or dysphagia. LYMPH: No history of lymphoproliferative disorder. CARDIAC: Negative for coronary artery disease, no angina or palpitations. PULMONARY: Negative for COPD. No shortness of breath, dyspnea or orthopnea. No cough or hemoptysis. GASTROINTESTINAL: Negative for abdominal pain, nausea, vomiting, diarrhea or constipation, hematochezia or melenotic stools. GENITOURINARY: No hematuria, dysuria, urinary incontinence; however, a urinalysis reported out multiple red cells and nitrites. MUSCULOSKELETAL: No skeletal pain per se. No arthralgias or myalgias. ENDOCRINE: Negative for diabetes or thyroid disease. NEUROLOGIC: Negative for seizure, stroke, or migraine headache. HEMATOLOGIC: Positive for anemia. I suspect is attributable to current chemotherapeutic regimen. PHYSICAL EXAMINATION: GENERAL: Maria Esther is a pleasant 71-year-old female patient in no acute distress. VITAL SIGNS: Temperature 37, pulse 87, respirations 18, blood pressure 113/71. SKIN: Warm, dry, noncyanotic without petechia, rash or ecchymosis. HEAD: Atraumatic, normocephalic. EYES: PERRLA, EOMI. Sclerae are nonicteric. No conjunctival injection. Nares are patent without rhinorrhea or discharge. Throat is clear. Tongue is midline. Mucous membranes are moist. NECK: Supple without JVD or thyromegaly. LYMPH: No cervical, supraclavicular, axillary palpable nodes. HEART: Regular rate and rhythm. No clicks, rubs, murmurs, gallops. LUNGS: Clear to auscultation bilaterally. ABDOMEN: Soft, nontender, nondistended, without palpable hepatosplenomegaly. EXTREMITIES: No calf tenderness or swelling. No clubbing, cyanosis or edema. NEUROLOGIC: She is awake, alert and oriented x3. Cranial nerves II-XII are intact. No gross motor or sensory deficits are noted. LABORATORY DATA: WBC count 5220, hemoglobin 9.4, and platelet count 167,000. Sodium 141, potassium 3.4, chloride 109, carbon dioxide 26, BUN 18, creatinine 0.45. IMAGING DATA: Chest x-ray, 17 mm left basilar nodule. Followup PA and lateral study is recommended. IMPRESSION: 1. Failing performance status. 2. Urinary tract infection. 3. Anemia secondary to chemotherapeutic effect. 4. Anorexia. PLAN: I visited Maria Esther at bedside today. She is feeling better after receiving initial antibiotics and IV hydration. Her appetite has picked up as well. Maria Esther is not anxious to be discharged and actually requesting to go to a rehabilitation facility. I spoke to her regarding where we go with chemo as I believe a lot of what is going on with her may be attributable to her current regimen. First and foremost, pulsing high dose dexamethasone can result in transient addisonian episodes. Additionally, cyclophosphamide can also contribute to fatigue and weakness. Thus, dose adjustments may be necessary going forward. I agree with her current medical management which includes physical and occupational therapy. I have no objection for Maria Esther going to [facility]. I will make arrangements to see Maria Esther back when her next cycle is to begin and discuss dose adjustment at that time. I have nothing further to add. Thank you very much for allowing me to participate in her care. If you have any questions or concerns, feel free to contact me at any time. MTDD
[2017-01-05 00:08] VITALS: BP 106/70; PULSE 92; TEMP 36.8; O2SAT 94
[2017-01-05 03:33] VITALS: BP 116/75; PULSE 102; TEMP 37; O2SAT 92
[2017-01-05] MEDS: HEPARIN SOD 5000 UNIT/0.5 ML CARP SQ SCH ×3 (05:41→22:00)
[2017-01-05 06:53] LABS: MEAN CELL VOLUME 88.7 fL (80-100); MEAN CORPUSCULAR HEMOGLOBIN 29.1 pg (25-34); MEAN CORPUSCULAR HGB CONC 32.8 g/dl (32-36); MEAN PLATELET VOLUME 10.4 fL (7.4-10.4); PLATELET COUNT 163 K/uL (130-400); RED BLOOD COUNT 3.27 M/uL (4.2-5.4); WHITE BLOOD COUNT 4.77 K/uL (4.8-10.8)
[2017-01-05 07:08] VITALS: BMI 23.9
[2017-01-05 07:26] LABS: BUN/CREATININE RATIO 28.3 (10-20); CALCIUM 7.5 mg/dl (8.5-10.1); CREATININE 0.46 mg/dl (0.60-1.20); POTASSIUM 4.1 mmol/L (3.5-5.1)
[2017-01-05 07:49] VITALS: BP 120/78; PULSE 100; TEMP 36.9; O2SAT 92
[2017-01-05 07:51] LABS: COMPLETE YES; EOS % 0.4 %; IG% 1.9 %; LYMPH % 1.3 %; LYMPH ABS # 0.06 K/uL (1.2-3.4); MONO % 2.1 %; NEUT % 94.3 %; TOXIC GRANULATION 2+
[2017-01-05] MEDS: BOOST VANILLA PO SCH ×6 (08:00→16:34)
[2017-01-05] MEDS: CHOLECALCIFEROL 1000 INTER.UNIT TAB PO SCH (08:37)
[2017-01-05] MEDS: MEGESTROL ACETATE 800 MG/20 ML UDP PO SCH (08:39)
[2017-01-05] MEDS: ANASTROZOLE 1 MG TAB PO SCH (08:39)
[2017-01-05] MEDS: METOPROLOL TARTRATE 25 MG TAB PO SCH ×2 (09:53→20:23)
[2017-01-05] MEDS: ACYCLOVIR 400 MG TAB PO SCH ×2 (09:53→20:23)
[2017-01-05] MEDS: ATORVASTATIN 10 MG TAB PO SCH (09:53)
[2017-01-05] MEDS: NSS + 20MEQ KCL 1000ML 1,000 ML IV SCH ×2 (09:53→17:20)
[2017-01-05] MEDS: CEFTRIAXONE SOD INJ 1 GM in DEXTROSE 5% ADD-VANTAGE 50ML 50 ML IV SCH (09:54)
--- NOTE | 2017-01-05 11:54 | HEME/ONC PROGRESS NOTE ---
DATE: 01/05/2017 DATE: 01/05/2017. DIAGNOSES: 1. Declining performance status. 2. Urinary tract infection. 3. Anemia secondary to chemotherapeutic effect. 4. Anorexia. HOSPITAL COURSE: Maria Esther is a pleasant 71-year-old female patient well known to me with a diagnosis of stage IIIa multiple myeloma established in January 2016. The patient was in the middle of her second cycle of combination of cyclophosphamide, bortezomib and dexamethasone. She had presented to the clinic complaining of profound weakness and decided to have her reevaluated and admitted. Clinically, Maria Esther seems to be doing a bit better but prefers not to be discharged home and wishes to go to rehabilitation facility. Her chemotherapy is on hold and plan to see her back prior to her next cycle and reevaluated for possible dose reduction. She is currently being treated for UTI. She offers no further complaints otherwise. PHYSICAL EXAMINATION: GENERAL: She is in no acute distress. VITAL SIGNS: Temperature 36.9, pulse 100, respirations 18, blood pressure 120/78. SKIN: Without rash or lesion. HEAD, EYES, EARS, NOSE, AND THROAT: Oral mucosa without erythema or ulceration. HEART: Regular rate and rhythm. LUNGS: Clear to auscultation bilaterally. ABDOMEN: Soft, nontender, nondistended. EXTREMITIES: No clubbing, cyanosis or edema. NEUROLOGIC EXAMINATION: Grossly intact. LABORATORY DATA: WBC counts 4770, hemoglobin 9.5, platelet count 163,000, sodium 140, potassium 4.1, chloride 110, carbon dioxide 21, creatinine 0.46, BUN 13. IMPRESSION: 1. Declining performance status. 2. Urinary tract infection. 3. Anemia secondary to chemotherapeutic effect. 4. Anorexia. PLAN: Maria Esther was seen again at bedside. Clinically, seems to be doing a bit better. She is ambulating with some assistance and currently under evaluation by physical therapy. I have nothing further to add. Again, the plan will be to see her in the outpatient arena and consider dose reduction going forward. Thank you again for assisting us in the care of this very pleasant lady.
[2017-01-05 12:29] VITALS: BP 108/74; PULSE 98; TEMP 36.7; O2SAT 95
--- NOTE | 2017-01-05 15:20 | Progress Note ---
Subjective Date of Service: Jan 05, 2017. Subjective pt feels not much better but likely from resistance of uti to levaquin which she was initially treated, change to rocephin 01/05, no other complaints Problem List Medical Problems: (1) Dehydration Status: Acute (2) Fall Status: Acute (3) Intertrochanteric fracture of left femur Status: Acute (4) Left hip pain Status: Acute (5) UTI (urinary tract infection) Status: Acute (6) Weakness Status: Acute (7) Weakness Status: Acute Review of Systems Constitutional: + weakness, + fatigue, No fever, No chills Respiratory: No cough, No shortness of breath, No dyspnea on exertion Cardiac: No chest pain, No PND, No edema Abdomen: No pain, No nausea, No vomiting, No diarrhea Female : No dysuria, No urinary frequency Psychiatric: No depression symptoms, No anhedonism Objective Vital Signs Date Time Temp Pulse Resp B/P (MAP) Pulse Ox O2 Delivery O2 Flow Rate FiO2 01/05/17 07:49 36.9 100 18 120/78 (92) 92 Room Air 01/05/17 03:33 37.0 102 18 116/75 (89) 92 Room Air 01/05/17 00:08 36.8 92 18 106/70 (82) 94 Room Air 01/04/17 23:59 Room Air 01/04/17 19:37 114 109/71 (84) 01/04/17 16:00 Room Air 01/04/17 15:25 37.0 109 18 104/67 (79) 93 Room Air 01/04/17 15:21 114 95 01/04/17 11:15 37.0 87 18 113/71 (85) 93 Room Air 01/04/17 08:30 92 Room Air Physical Exam General Appearance: WD/WN, + mild distress Eyes: PERRL, EOMI Neck: supple, no JVD Respiratory/Chest: chest non-tender, lungs clear, normal breath sounds Cardiovascular: regular rate, rhythm, no murmur Abdomen: normal bowel sounds, non tender, soft Extremities: no pedal edema, no calf tenderness Neurologic/Psychiatric: alert, oriented x 3 Laboratory Results Last 24 Hours Test 01/05/17 06:16 White Blood Count 4.77 K/uL Red Blood Count 3.27 M/uL Hemoglobin 9.5 g/dL Hematocrit 29.0 % Mean Corpuscular Volume 88.7 fL Mean Corpuscular Hemoglobin 29.1 pg Mean Corpuscular Hemoglobin Concent 32.8 g/dl Platelet Count 163 K/uL Mean Platelet Volume 10.4 fL Neutrophils (%) (Auto) 94.3 % Lymphocytes (%) (Auto) 1.3 % Monocytes (%) (Auto) 2.1 % Eosinophils (%) (Auto) 0.4 % Basophils (%) (Auto) 0.0 % Neutrophils # (Auto) 4.50 K/uL Lymphocytes # (Auto) 0.06 K/uL Monocytes # (Auto) 0.10 K/uL Eosinophils # (Auto) 0.02 K/uL Basophils # (Auto) 0.00 K/uL RDW Standard Deviation 63.7 fL RDW Coefficient of Variation 19.9 % Immature Granulocyte % (Auto) 1.9 % Immature Granulocyte # (Auto) 0.09 K/uL Toxic Granulation 2+ Sodium Level 140 mmol/L Potassium Level 4.1 mmol/L Chloride Level 111 mmol/L Carbon Dioxide Level 21 mmol/L Anion Gap 8.0 mmol/L Blood Urea Nitrogen 13 mg/dl Creatinine 0.46 mg/dl Est Creatinine Clear Calc Drug Dose 91.4 ml/min Estimated GFR () 115.2 Estimated GFR (Non- 99.4 BUN/Creatinine Ratio 28.3 Random Glucose 92 mg/dl Calcium Level 7.5 mg/dl Assessment and Plan Pt is a 71 yo female who is currently undergoing treatments for her Multiple Myeloma presents with progressive weakness/decreased appetite over past few weeks - Generalized weakness: multifactorial from Multiple Myeloma chemotherapy, poor nutrition, UTI PT/OT consults, plan for rehab on d/c - UTI: E coli, with many resistances, will change to Rocephin, follow bladder scan, straight cath PRN - Vitamin D deficiency: 50,000 units given, plan for weekly treatment - Hypokalemia: replete - MM: follows with Dr. Grace, Hx of breast cancer - cont Arimidex DVT ppx with heparin Pt is FULL CODE Continued [facility] stay due to: inadequate po fluid intake, home environment unsafe for pt Discharge planning: rehab hospital
[2017-01-05 15:52] VITALS: BP 104/72; PULSE 107; TEMP 37.3; O2SAT 94
[2017-01-05 19:37] VITALS: BP 112/74; PULSE 112; TEMP 37.3; O2SAT 94
[2017-01-06] VITALS (10 sets, daily range): BP systolic 101–120; BP diastolic 63–78; PULSE 93–120; TEMP 36.6–38; O2SAT 91–93; BMI 24.0
[2017-01-06] MEDS: NSS + 20MEQ KCL 1000ML 1,000 ML IV SCH ×3 (03:25→23:33)
[2017-01-06] MEDS: HEPARIN SOD 5000 UNIT/0.5 ML CARP SQ SCH ×3 (05:20→19:54)
[2017-01-06 05:56] LABS: HEMATOCRIT 27.8 % (37-47); MEAN CELL VOLUME 89.4 fL (80-100); MEAN CORPUSCULAR HEMOGLOBIN 29.6 pg (25-34); MEAN CORPUSCULAR HGB CONC 33.1 g/dl (32-36); PLATELET COUNT 159 K/uL (130-400); RED BLOOD COUNT 3.11 M/uL (4.2-5.4); WHITE BLOOD COUNT 4.01 K/uL (4.8-10.8)
[2017-01-06 06:21] LABS: CALCIUM 7.7 mg/dl (8.5-10.1); CREATININE 0.46 mg/dl (0.60-1.20); POTASSIUM 4.2 mmol/L (3.5-5.1)
[2017-01-06 07:21] LABS: ANISOCYTOSIS PRESENT; COMPLETE YES; EOS % 0.7 %; IG% 4.5 %; LYMPH ABS # 0.16 K/uL (1.2-3.4); MONO % 0.5 %; NEUT % 90.3 %; TOXIC GRANULATION 1+
--- NOTE | 2017-01-06 08:24 | Progress Note ---
Subjective Date of Service: Jan 06, 2017. Subjective pt feels improved today but recognizes that she cannot go home, requesting rehab evaluation Problem List Medical Problems: (1) Dehydration Status: Acute (2) Fall Status: Acute (3) Intertrochanteric fracture of left femur Status: Acute (4) Left hip pain Status: Acute (5) UTI (urinary tract infection) Status: Acute (6) Weakness Status: Acute (7) Weakness Status: Acute Review of Systems Constitutional: + weakness, + fatigue, No fever, No chills Respiratory: No cough, No shortness of breath Cardiac: No chest pain, No edema Abdomen: No pain, No diarrhea Musculoskeletal: + joint pain, + muscle pain, No swelling Neurologic: + weakness, + balance problems, No memory loss, No paralysis Objective Vital Signs Date Time Temp Pulse Resp B/P (MAP) Pulse Ox O2 Delivery O2 Flow Rate FiO2 01/06/17 07:59 36.8 100 16 120/78 (92) 93 Room Air 01/06/17 03:55 37.5 104 20 114/72 (86) 91 Room Air 01/06/17 03:20 Room Air 01/06/17 00:00 36.6 103 16 105/71 (82) 93 Room Air 01/05/17 20:42 Room Air 01/05/17 19:37 37.3 112 18 112/74 (87) 94 Room Air 01/05/17 16:00 Room Air 01/05/17 15:52 37.3 107 16 104/72 (83) 94 Room Air 01/05/17 12:29 36.7 98 17 108/74 (85) 95 Physical Exam General Appearance: WD/WN, + mild distress Eyes: PERRL, EOMI Neck: supple, no JVD Respiratory/Chest: chest non-tender, lungs clear Cardiovascular: regular rate, rhythm, no murmur Abdomen: normal bowel sounds, non tender, soft Laboratory Results Last 24 Hours Test 01/06/17 05:20 White Blood Count 4.01 K/uL Red Blood Count 3.11 M/uL Hemoglobin 9.2 g/dL Hematocrit 27.8 % Mean Corpuscular Volume 89.4 fL Mean Corpuscular Hemoglobin 29.6 pg Mean Corpuscular Hemoglobin Concent 33.1 g/dl Platelet Count 159 K/uL Mean Platelet Volume 10.0 fL Neutrophils (%) (Auto) 90.3 % Lymphocytes (%) (Auto) 4.0 % Monocytes (%) (Auto) 0.5 % Eosinophils (%) (Auto) 0.7 % Basophils (%) (Auto) 0.0 % Neutrophils # (Auto) 3.62 K/uL Lymphocytes # (Auto) 0.16 K/uL Monocytes # (Auto) 0.02 K/uL Eosinophils # (Auto) 0.03 K/uL Basophils # (Auto) 0.00 K/uL RDW Standard Deviation 65.1 fL RDW Coefficient of Variation 20.3 % Immature Granulocyte % (Auto) 4.5 % Immature Granulocyte # (Auto) 0.18 K/uL Toxic Granulation 1+ Anisocytosis PRESENT Sodium Level 139 mmol/L Potassium Level 4.2 mmol/L Chloride Level 109 mmol/L Carbon Dioxide Level 22 mmol/L Anion Gap 8.0 mmol/L Blood Urea Nitrogen 7 mg/dl Creatinine 0.46 mg/dl Est Creatinine Clear Calc Drug Dose 91.4 ml/min Estimated GFR () 115.2 Estimated GFR (Non- 99.4 BUN/Creatinine Ratio 16.0 Random Glucose 90 mg/dl Calcium Level 7.7 mg/dl Assessment and Plan Pt is a 71 yo female who is currently undergoing treatments for her Multiple Myeloma presents with progressive weakness/decreased appetite over past few weeks - Generalized weakness: multifactorial from Multiple Myeloma chemotherapy, poor nutrition, UTI PT/OT consults, plan for rehab on d/c, will need to continue one week of antibiotic there, may use cefdinir if needing oral change - UTI: E coli, with many resistances, will change to Rocephin, follow bladder scan, straight cath PRN - Vitamin D deficiency: 50,000 units given, plan for weekly treatment - Hypokalemia: is stable - MM: follows with Dr. Grace, Hx of breast cancer - cont Arimidex DVT ppx with heparin Pt is FULL CODE Continued [facility] stay due to: inadequate po fluid intake, home environment unsafe for pt Discharge planning: rehab hospital
[2017-01-06] MEDS: BOOST VANILLA PO SCH ×6 (08:36→17:00)
[2017-01-06] MEDS: METOPROLOL TARTRATE 25 MG TAB PO SCH ×2 (08:37→19:54)
[2017-01-06] MEDS: ATORVASTATIN 10 MG TAB PO SCH (08:37)
[2017-01-06] MEDS: MEGESTROL ACETATE 800 MG/20 ML UDP PO SCH (08:37)
[2017-01-06] MEDS: ACYCLOVIR 400 MG TAB PO SCH ×2 (08:37→19:54)
[2017-01-06] MEDS: CHOLECALCIFEROL 1000 INTER.UNIT TAB PO SCH (08:37)
[2017-01-06] MEDS: CEFTRIAXONE SOD INJ 1 GM in DEXTROSE 5% ADD-VANTAGE 50ML 50 ML IV SCH (08:40)
[2017-01-06] MEDS: ANASTROZOLE 1 MG TAB PO SCH (08:40)
--- NOTE | 2017-01-06 09:49 | HEME/ONC PROGRESS NOTE ---
DATE: 01/06/2017 DIAGNOSES: 1. Declining performance status. 2. Urinary tract infection. 3. Anemia secondary to chemotherapeutic effect. 4. Anorexia. 5. Multiple myeloma. HOSPITAL COURSE: Maria Esther is a pleasant 71-year-old female patient well known to me with a diagnosis of stage IIIA multiple myeloma established in 2016. She was in the midst of her second cycle of combination cyclophosphamide, bortezomib and dexamethasone. On the day of admission, presented to the clinic complaining of profound weakness, decided to have her admitted for this reason. Maria Esther is progressing satisfactorily and I suspect she will be discharged in the next 24 hours to a rehabilitation facility. Apparently, antibiotic sensitivities are currently holding up discharge. She is tolerating diet, ambulating with some assistance and working with physical therapy. She offers no further complaints. PHYSICAL EXAMINATION: GENERAL: She is in no acute distress. VITAL SIGNS: Temperature 36.8, pulse 100, respirations 16, blood pressure 120/78. SKIN: Without rash or lesion. HEENT: Oral mucosa without erythema or ulceration. NECK: Supple. HEART: Regular rate and rhythm. No clicks, rubs, murmurs or gallops. LUNGS: Clear to auscultation bilaterally. ABDOMEN: Soft, nontender, nondistended. EXTREMITIES: Pneumatics is in place. No clubbing, cyanosis or edema. NEUROLOGIC: Grossly intact. LABORATORY DATA: WBC count 4010, hemoglobin 9.2, platelet count 159,000. Chemistries: Sodium 139, potassium 4.2, chloride 109, carbon dioxide 22, BUN 7, creatinine 0.46. IMPRESSION: 1. Failing performance status. 2. Urinary tract infection. 3. Anemia secondary to chemotherapeutic effect. 4. Anorexia. 5. Multiple myeloma. PLAN: Maria Esther was seen at bedside and slowly making progress. Again, I read the hospitalist note and believe that she will be discharged probably Saturday. Again, will arrange for a follow up prior to her next cycle and consider dose reduction for better tolerance. I have nothing to add today and I will officially sign off. Thank you very much for assisting us in the care of this very pleasant lady.
[2017-01-07 03:54] VITALS: BP_SYST 102; BP_SYST 106; BP_DIAS 69; BP_DIAS 70; PULSE 88; PULSE 93; TEMP 36.9; O2SAT 91; O2SAT 94
[2017-01-07] MEDS: HEPARIN SOD 5000 UNIT/0.5 ML CARP SQ SCH ×2 (04:40→14:00)
[2017-01-07 06:32] VITALS: Ht 160 cm; Wt 61.2 kg
[2017-01-07 07:34] VITALS: BP 121/78; PULSE 99; TEMP 37.5; O2SAT 90
[2017-01-07 07:37] LABS: HEMATOCRIT 29.2 % (37-47); MEAN CELL VOLUME 88.2 fL (80-100); MEAN CORPUSCULAR HEMOGLOBIN 28.7 pg (25-34); MEAN CORPUSCULAR HGB CONC 32.5 g/dl (32-36); MEAN PLATELET VOLUME 9.5 fL (7.4-10.4); PLATELET COUNT 146 K/uL (130-400); RED BLOOD COUNT 3.31 M/uL (4.2-5.4); WHITE BLOOD COUNT 3.33 K/uL (4.8-10.8)
[2017-01-07 08:00] LABS: BUN/CREATININE RATIO 18.9 (10-20); CREATININE 0.5 mg/dl (0.60-1.20); POTASSIUM 4.4 mmol/L (3.5-5.1)
[2017-01-07 08:03] LABS: ANISOCYTOSIS PRESENT; BASO % 0.3 %; BASO ABS # 0.01 K/uL (0-0.2); COMPLETE YES; EOS % 0.9 %; GIANT PLATELETS 1+; IG% 5.1 %; LARGE PLATELETS 1+; LYMPH % 1.8 %; LYMPH ABS # 0.06 K/uL (1.2-3.4); MONO % 3.9 %; POIKILOCYTOSIS PRESENT; TOXIC GRANULATION 2+
[2017-01-07] MEDS: ATORVASTATIN 10 MG TAB PO SCH (08:31)
[2017-01-07] MEDS: BOOST VANILLA PO SCH ×4 (08:31→12:40)
[2017-01-07] MEDS: MEGESTROL ACETATE 800 MG/20 ML UDP PO SCH (08:31)
[2017-01-07] MEDS: ACYCLOVIR 400 MG TAB PO SCH (08:31)
[2017-01-07] MEDS: METOPROLOL TARTRATE 25 MG TAB PO SCH (08:31)
[2017-01-07] MEDS: CHOLECALCIFEROL 1000 INTER.UNIT TAB PO SCH (08:32)
[2017-01-07] MEDS: ANASTROZOLE 1 MG TAB PO SCH (08:33)
[2017-01-07] MEDS: CEFTRIAXONE SOD INJ 1 GM in DEXTROSE 5% ADD-VANTAGE 50ML 50 ML IV SCH (09:11)
[2017-01-07] MEDS: NSS + 20MEQ KCL 1000ML 1,000 ML IV SCH (09:11)
--- NOTE | 2017-01-07 10:28 | Clinical Documentation Query ---
CLINICAL DOCUMENTATION QUERY 71 year old female who is undergoing treatment for multiple myeloma presents to the Emergency Room with complaints of worsening generalized weakness. She is being described as having anorexia and at least in part responsible for her weakness. In your clinical opinion is this patient being managed for: ( ) Severe protein-calorie malnutrition in setting of anorexia and chemotherapy. ( ) Moderate protein-calorie malnutrition ( ) Mild protein-calorie malnutrition ( ) Other explanation of clinical findings (Please Explain) ( ) Unable to determine (Please Define) ( ) Need to Discuss ( ) Not Agree The medical record reflects the following clinical findings, treatment, and risk factors. Clinical Indicators: As above. On 10/19/16 patient weighed 68.2 kg per record and now weighs 61.2. This is a 10% loss in weight. Other pertinent labs RBC 3.79, Hgb 10.4, Hct 33.7, Albumin 2.5, Treatment: Regular diet, PRN IV Zofran, Dietary consult, BOOST, Megace, Risk Factors: Age, chemotherapy, Multiple Myeloma. Please clarify and document your clinical opinion in the progress notes and discharge summary. Terms such as "probable", "suspected", "likely", "questionable", "possible", or "still to be ruled out" are acceptable. IF IN AGREEMENT, YOU MUST DOCUMENT ABOVE DIAGNOSTIC STATEMENT IN DAILY PROGRESS NOTES AND DISCHARGE SUMMARY. This document is not part of the patient's record. Thank You, Mello Lopez RN [phone]
[2017-01-07 11:43] VITALS: BP 105/71; PULSE 102; O2SAT 92
[2017-01-07 11:49] VITALS: TEMP 37.8
[2017-01-07] MEDS ORDERED: NYSS5 PO (13:02)
[2017-01-07] MEDS ORDERED: CEFD300C2 PO (13:02)
--- NOTE | 2017-01-07 13:07 | Discharge Instructions ---
Discharge Instructions Date of Service Jan 07, 2017. Admission Reason for Admission: Weakness Discharge Discharge Diagnosis / Problem: resistent ecoli uti, thrush, encephalopathy Discharge Goals Goal(s): Diagnostic testing, Therapeutic intervention Activity Recommendations Activity Level: Up Ad Lissette . Additional Information Patient informed of condition: Yes Advance Directives: Yes DNR: No Level of Care: Acute Rehab Communicable Disease: Yes Prognosis: Stable Izquierdo Catheter: No Current Hospital Diet Patient's current hospital diet: Regular Diet Discharge Diet Recommended Diet: Regular Diet Pending Studies Studies pending at discharge: no Medical Emergencies . Who to Call and When: Medical Emergencies: If at any time you feel your situation is an emergency, please call 911 immediately. . Non-Emergent Contact Non-Emergency issues call your: Primary Care Provider Call Non-Emergent contact if: temperature is above 101, your pain is unusual for you . . "Provider Documentation" section prepared by Juan Antonio Mosqueda. . Television Cameraman Recommendations Television Cameraman Recommendations: 71 yo female who is currently undergoing treatments for her Multiple Myeloma presents with progressive weakness/decreased appetite over past few weeks, found to have drug resistent uti and improved with treatment - Generalized weakness: multifactorial from Multiple Myeloma chemotherapy, poor nutrition, UTI PT/OT consults rehab on d/c, use cefdinir to compelte a week - UTI: E coli, with many resistances, Rocephin, follow bladder scan, straight cath PRN once returns to rehab Oral thrush will use nystatin s/s - Vitamin D deficiency: 50,000 units given, plan for continued outpt treatment - MM: follows with Dr. Grace, Hx of breast cancer - cont Arimidex Pt is FULL CODE Core Measure Problem Core Measures: None
--- NOTE | 2017-01-07 13:10 | Discharge Summary ---
Discharge Summary Date of Service Jan 07, 2017. Discharge Summary Admission Date: Jan 03, 2017 at 16:09 Discharge Date: Jan 07, 2017 Discharge Disposition: Rehab Principal Diagnosis: weakness, e coli uti wtih quinalone resistance Immunizations: Have You Had Influenza Vaccine: No History of Tetanus Vaccine?: UTD History of Pneumococcal: Yes History of Hepatitis B Vaccine: No Medication Reconciliation New Medications: Cefdinir (Omnicef) 300 Mg Cap 300 MG PO Q12H, #8 CAP Nystatin (Nystatin) 5 Ml Susp 5 ML PO QID, #200 ML swish and swallow Continued Medications: Acyclovir (Acyclovir) 400 Mg Tab 1 TAB PO BID, #50 Anastrozole (Arimidex) 1 Mg Tab 1 MG PO QAM, TAB Atorvastatin (Lipitor) 10 Mg Tab 1 TAB PO DAILY for 30 Days, #30 TAB 5 Refills Cholecalciferol (Vitamin D3) 2,000 Unit Cap 1 CAP PO DAILY, CAP Cyclophosphamide (Cyclophosphamide) 50 Mg Cap 10 CAP PO take 10- 50mg cap with 1-25mg cap on day 1,8,15,22 Cyclophosphamide (Cyclophosphamide) 25 Mg Cap 1 CAP PO, #4 take with 10- 50mg caps on days 1,8,15,22 Diphenoxylate/Atropine (Lomotil) Tab 1 TAB PO, TAB Megestrol Acetate (Megestrol Acetate) 40 Mg/1 Ml Susp 20 ML PO DAILY, #480 Metoprolol Tartrate (Lopressor) 25 Mg Tab 25 MG PO BID for 30 Days, #60 TAB 1 Refill Ondansetron (Ondansetron HCl) 8 Mg Tab 1 TAB PO BID for Nausea, #45 Polyethylene Glycol 3350 (Miralax) 1 Pow Pow 17 GM PO DAILY PRN for Constipation, #527 GM Zoledronic Acid (Zometa) 4 Mg/5 Ml Inj 4 MG INJ MONTHLY Discontinued Medications: Dexamethasone (Decadron) 4 Mg Tab 4 TAB PO DIRECTED for 2 Days, TAB 20mg PO daily x 4 days then off for 4 days. Takes this at the time of her treatment for her multiple myeloma. As of 10/19/16, on hold due to possible stem transplant. Discharge Exam Review of Systems: Constitutional: No chills, No sweats Respiratory: No cough, No sputum Cardiovascular: No chest pain, No orthopnea Abdomen: No pain, No nausea Musculoskeletal: No joint pain, No muscle pain, No swelling Genitourinary - Female: No dysuria, No urinary frequency Physical Exam: General Appearance: WD/WN, + mild distress Eyes: normal inspection, PERRL, EOMI ENT: normal ENT inspection, pharynx normal Neck: supple, no JVD Respiratory/Chest: chest non-tender, lungs clear, normal breath sounds Cardiovascular: regular rate, rhythm, no murmur Abdomen / GI: normal bowel sounds, non tender, soft Neurologic/Psychiatric: alert, oriented x 3 Hospital Course 71 yo female who is currently undergoing treatments for her Multiple Myeloma presents with progressive weakness/decreased appetite over past few weeks, found to have drug resistent uti and improved with treatment - Generalized weakness: multifactorial from Multiple Myeloma chemotherapy, poor nutrition, UTI PT/OT consults rehab on d/c, use cefdinir to compelte a week - UTI: E coli, with many resistances, Rocephin, follow bladder scan, straight cath PRN once returns to rehab Oral thrush will use nystatin s/s - Vitamin D deficiency: 50,000 units given, plan for continued outpt treatment - MM: follows with Dr. Grace, Hx of breast cancer - cont Arimidex Pt is FULL CODE Total Time Spent: Greater than 30 minutes This includes examination of the patient, discharge planning, medication reconciliation, and communication with other providers. Discharge Instructions Please refer to the electronic Patient Visit Report (Discharge Instructions) for additional information.
[2017-01-07 14:35] VITALS: BP 105/71; PULSE 102; TEMP 37.8; O2SAT 92
[2017-01-07 15:25] VITALS: BP 121/81; PULSE 124; TEMP 38.1; O2SAT 91
[2017-05-07] MEDS ORDERED: METO25TA56 PO (11:20)
[2017-05-07] MEDS ORDERED: LENA10CA3 PO (11:20)
[2017-05-07] MEDS ORDERED: DILT-119 PO (11:20)
== END 2017-01-07 16:00 | DRG 690 ==
LOC: C.EDB 12:26 → C.4E 16:09 → ENRESERV 16:38
PROVIDERS: ADMIT Hospitalist; ATTEND Internal Medicine
DX: N39.0 Urinary tract infection, site not specified (principal); C90.00 Multiple myeloma not having achieved remission; B37.0 Candidal stomatitis; R53.1 Weakness; B96.20 Unspecified Escherichia coli [E. coli] as the cause of diseases classified elsewhere; Z16.23 Resistance to quinolones and fluoroquinolones; D64.81 Anemia due to antineoplastic chemotherapy; R63.0 Anorexia; Z85.3 Personal history of malignant neoplasm of breast; E87.6 Hypokalemia; T45.1X5A Adverse effect of antineoplastic and immunosuppressive drugs, initial encounter; Z87.891 Personal history of nicotine dependence; E78.5 Hyperlipidemia, unspecified; D47.2 Monoclonal gammopathy

== ENCOUNTER → 2017-04-11 | Outpatient (CLI) | payer OTHER ==
[~2017-04-11] MED LIST changes: -ACYC-57 PO; -ATOR10TA82 PO; +ATOR10TA88 PO; -CHOL100010 PO; +CHOL2000 PO; +CYCL60CA PO; -DILT-115 PO; +DILT-119 PO; +DIPH-416 PO; -DOCU100C31 PO; -DXM/4 PO; +LENA10CA3 PO; +METO25TA56 PO; +MGCL40 PO; +NYSS5 PO; +ONDA-63 PO; -OXYC-57 PO; +ZVR400 PO; +[UNRECOGNIZED DRUG - CODE] PO
[2017-04-11 13:39] VITALS: BP 111/69; PULSE 85; TEMP 36.9; O2SAT 93
--- NOTE | 2017-04-11 16:18 | Radiation Oncology Follow-Up ---
Radiation Oncology Follow-Up Date of Visit Apr 11, 2017. Reason For Visit Five-month follow-up Radiation Completion Date finished right pelvis 11-07-16, left breast 06-26-2013 Diagnosis (1) Multiple myeloma Status: Acute Location: right hip Stage: IV Permanent Comment: Status post left hip fracture December 2015. Status post open reduction internal fixation Diagnosed with multiple myeloma February 2016 Systemic chemotherapy with Velcade and dexamethasone Finding of a right sclerotic/blastic lesion of the bony pelvis Status post completion of palliative radiation therapy to the right pelvis 11/07. She received 3000 cGy Last Edited By: Poly Collins on Nov 19, 2016 10:53 History of Present Illness This is a 71-year-old white female known to our office from prior radiation therapy to the left breast. She previously had an abnormal left breast mammogram and underwent a biopsy 04/01/2013. This revealed an invasive carcinoma that was grade 3. The estrogen receptor was positive, progesterone receptor was positive , and HER-2/clark was negative. She had a partial mastectomy and sentinel lymph node biopsy. She was stage IA. An Oncotype DX score was obtained and was 16. She did not require chemotherapy. She then had radiation therapy. Treatment was completed 06/26/2013 and she was treated with accelerated partial breast irradiation. She has had ongoing treatment with Arimidex. In December of last year she fell and fractured her hip. She had open reduction internal fixation. Following the fracture she was diagnosed with multiple myeloma in February. She's been followed by Dr. Grace. She's been receiving systemic chemotherapy with Velcade and dexamethasone. Approximately 2 weeks ago she developed pain in her right hip. This is in the lateral aspect of the hip and radiates towards the knee. This is especially severe at night. When she tries to get out of bed and pain can be severe until she is able to stretch and move. She was prescribed pain medication which she takes at 10 PM and 4 AM. The pain can be up to level X. She was sent for plain film x-rays of the hip and that was performed which 05/2017. No fracture was identified. There is generalized osteopenia with advanced arthritic changes noted in the lesion identified in the right bony pelvis. This is new from 03/06/2016 and is highly concerning for metastatic disease. Numerous small osteolytic lesions are suggested. She was referred to our office for palliative radiation therapy. Interim History She is doing well in regards to her prior treatment. She has only occasional mild hip discomfort. She did feel that the radiation was beneficial. She had been receiving chemotherapy and steadily became increasingly more fatigued with weakness. She required hospitalization and then [place] Her daughter who lives in [place] for came and got her. She has been in [place] for 2 months. She has steadily recuperated. She was seen by medical oncologist Dr. Philipp Jenkins. He is recommended a chemotherapy pill that she'll take once a day. She is waiting for the medication to arrive. She will also be followed locally by Dr. Ness. She had been seen for possible stem cell transplant. It is felt that she could not tolerate the chemotherapy given in preparation for transplant. She had previously been treated in 2012 for breast cancer. With being away from home she has not been able to follow through with recheck mammography. She plans to schedule this in the very near future. Allergies Coded Allergies: Cat Dander (Unverified Allergy, Unknown, ITCHY EYES STUFFY NOSE, 01/03/17) NO KNOWN DRUG ALLERGIES (Unverified Allergy, Unknown, NONE, 01/03/17) Home Medications Scheduled Anastrozole (Arimidex), 1 MG PO QAM Atorvastatin (Lipitor), 1 TAB PO DAILY Cholecalciferol (Vitamin D3), 1 CAP PO DAILY Metoprolol Tartrate (Lopressor), 25 MG PO BID Zoledronic Acid (Zometa), 4 MG INJ MONTHLY Review of Systems Gastrointestinal: Symptoms: WNL Oral: Symptoms: No Problems Respiratory: Symptoms: WNL Urinary: Symptoms: Nocturia Comments: nocturia times 3 Skin: Symptoms: No Problems Breast: Right Upper Arm Measurement: 26.5 Right Mid Arm Measurement: 22.5 Right Wrist Measurement: 15.3 Left Upper Arm Measurement: 26.5 Left Mid Arm Measurement: 22.0 Left Wrist Measurement: 16.0 Arm Dominence: Right Patient Cosmetic Evaluation: Excellent Staff Cosmetic Evalaluation: Excellent Physical Exam Vital Signs Date Time Temp Pulse Resp B/P (MAP) Pulse Ox O2 Delivery O2 Flow Rate FiO2 04/11/17 13:39 36.9 85 16 111/69 93 Pain: Side: Bilateral Pain Location: None Patient Pain Scale: 0 - 10 Initial Pain Intensity: 0.0 Fatigue: None General Appearance: no apparent distress Eyes: normal inspection, EOMI ENT: normal ENT inspection, hearing grossly normal Neck: no adenopathy, thyroid normal Respiratory/Chest: lungs clear, no respiratory distress, no accessory muscle use Breast: Breast examination reveals well-healed incisions of the left breast. There are no masses or tenderness and no axillary adenopathy. She has no skin retractions or nipple changes. Using the Gadsden score cosmesis she has a in excellent outcome. The right breast showed no masses or tenderness and no axillary adenopathy. Cardiovascular: regular rate, rhythm, no gallop, no murmur Abdomen: non tender, soft Extremities: no pedal edema Neurologic/Psychiatric: no motor/sensory deficits, alert, normal mood/affect Skin: warm/dry Laboratory Studies Test 04/11/17 13:16 White Blood Count 6.95 K/uL (4.8-10.8) Red Blood Count 4.31 M/uL (4.2-5.4) Hemoglobin 13.5 g/dL (12.0-16.0) Hematocrit 40.7 % (37-47) Mean Corpuscular Volume 94.4 fL (80-100) Mean Corpuscular Hemoglobin 31.3 pg (25-34) Mean Corpuscular Hemoglobin Concent 33.2 g/dl (32-36) Platelet Count 388 K/uL (130-400) Mean Platelet Volume 9.5 fL (7.4-10.4) Neutrophils (%) (Auto) 72.2 % Lymphocytes (%) (Auto) 12.8 % Monocytes (%) (Auto) 12.1 % Eosinophils (%) (Auto) 1.9 % Basophils (%) (Auto) 0.6 % Neutrophils # (Auto) 5.02 K/uL (1.4-6.5) Lymphocytes # (Auto) 0.89 K/uL (1.2-3.4) Monocytes # (Auto) 0.84 K/uL (0.11-0.59) Eosinophils # (Auto) 0.13 K/uL (0-0.5) Basophils # (Auto) 0.04 K/uL (0-0.2) RDW Standard Deviation 51.1 fL (36.4-46.3) RDW Coefficient of Variation 14.9 % (11.5-14.5) Immature Granulocyte % (Auto) 0.4 % Immature Granulocyte # (Auto) 0.03 K/uL (0.00-0.02) Sodium Level 138 mmol/L (136-145) Potassium Level 4.3 mmol/L (3.5-5.1) Chloride Level 106 mmol/L (98-107) Carbon Dioxide Level 26 mmol/L (21-32) Anion Gap 6.0 mmol/L (3-11) Blood Urea Nitrogen 20 mg/dl (7-18) Creatinine 1.10 mg/dl (0.60-1.20) Est Creatinine Clear Calc Drug Dose 41.6 ml/min Estimated GFR () 58.1 Estimated GFR (Non- 50.1 BUN/Creatinine Ratio 18.3 (10-20) Random Glucose 102 mg/dl (70-99) Calcium Level 9.7 mg/dl (8.5-10.1) Total Bilirubin 0.2 mg/dl (0.2-1) Aspartate Amino Transferase (AST) 20 U/L (15-37) Alanine Aminotransferase (ALT) 18 U/L (12-78) Alkaline Phosphatase 106 U/L (45-117) Total Protein 8.6 gm/dl (6.4-8.2) Albumin 3.2 gm/dl (3.4-5.0) Globulin 5.4 gm/dl (2.5-4.0) Albumin/Globulin Ratio 0.6 (0.9-2) Immunoglobulin G 736.0 mg/dL (700-1600) Immunoglobulin A 1450.0 mg/dL (70-400) Immunoglobulin M 83.1 mg/dL (40-230) Assessment & Plan Plan: Continue with mammography. She is going to schedule a mammogram in the very near future. She is going to be taking an oral chemotherapy medication. Continue follow-up with medical oncology. She was also seen and examined by Dr. Flores. We asked her to return to our office in 1 year. She may call if she has any questions or concerns in the interim and or if recommended by medical oncology. Assessment & Plan (Attending) ADDENDUM: I agree with note created by Poly Collins PA-C. I reviewed the patient's chart and information with her. I have examined and evaluated the patient. I reviewed relevant clinical information and answered the patient's and /or family's questions. LITHOGRAPHERS PRINTER Total Time In Follow-Up I spent 20 minutes speaking to the patient performing examination. I spent 15 minutes reviewing information in completing this note. AK Total Time (Attending) In Follow-Up I spent 15 minutes examining and counseling the patient. LITHOGRAPHERS PRINTER Copy To Bret Rodriguez M.D.; Darrell Grace D.O. Problem Qualifiers (1) Multiple myeloma: Multiple myeloma remission status: not in remission Qualified Codes: C90.00 - Multiple myeloma not having achieved remission
== END | disposition home or self-care (01) ==
LOC: C.ONC 13:22
PROVIDERS: ATTEND Physician Assistant Medical
DX: Z08 Encounter for follow-up examination after completed treatment for malignant neoplasm (principal); Z92.3 Personal history of irradiation; Z85.89 Personal history of malignant neoplasm of other organs and systems; D47.2 Monoclonal gammopathy

== ENCOUNTER → 2017-04-29 | Outpatient (CLI) | payer OTHER ==
[~2017-04-29] MED LIST changes: -CYCL60CA PO; -DIPH-416 PO; -MGCL40 PO; -NYSS5 PO; -ONDA-63 PO; -POLY335019 PO; -ZVR400 PO; -[UNRECOGNIZED DRUG - CODE] PO
--- NOTE | 2017-04-29 14:20 | DIAGNOSTIC IMAGING REPORT ---
CHEST 2 VIEWS ROUTINE HISTORY: 71 years-old Female ABNORMAL CHEST XRAY follow-up study to assess nodule versus artifact of the left lung base seen on comparison study 01/03/2017. COMPARISON: Chest radiograph 01/03/2017 TECHNIQUE: Frontal and lateral views of the chest FINDINGS: Cardiac silhouette is mildly enlarged, unchanged. There is atherosclerosis of the aorta. No pneumothorax or large pleural effusion. There is chronic mild blunting of the bilateral costophrenic angles. Subsegmental left basilar atelectasis is noted with improved aeration of the left lung base from comparison. Previously questioned nodular opacity of the left lung base is not identified. Lungs are mildly hyperinflated with diaphragmatic flattening. The bones are grossly intact. IMPRESSION: 1. Improved aeration of the left lung base with previously noted nodular opacity of the left lung base not identified on today's study. 2. Mild hyperinflation. The above report was generated using voice recognition software. It may contain grammatical, syntax or spelling errors. Electronically signed by: Dharmesh Holden M.D. 04/29/2017 2:18 PM Dictated Date/Time: 04/29/2017 2:16 PM
== END | disposition home or self-care (01) ==
LOC: C.RAD1850 14:02
PROVIDERS: ATTEND Physician Assistant Medical
DX: R93.8 Abnormal findings on diagnostic imaging of other specified body structures (principal)

== ENCOUNTER → 2017-04-29 | Outpatient (CLI) | payer OTHER | END | disposition home or self-care (01) | LOC: C.RDSM 15:56 | PROVIDERS: ATTEND Physical Medicine & Rehabilitation Sports Medicine | DX: S72.142D Displaced intertrochanteric fracture of left femur, subsequent encounter for closed fracture with routine healing (principal); Z96.652 Presence of left artificial knee joint; X58.XXXD Exposure to other specified factors, subsequent encounter; R93.8 Abnormal findings on diagnostic imaging of other specified body structures ==

== ENCOUNTER → 2017-05-15 | Day surgery (SDC) | payer OTHER ==
[2017-05-07 11:21] VITALS: Ht 154.9 cm; Wt 67.3 kg
[~2017-05-15] VITALS: Ht 154.9 cm; Wt 67.3 kg
[~2017-05-15] MED LIST changes: +500ML BSS 0.3ML EPI 1:1000PF IRRIG ONE; +ACETAMINOPHEN 325 MG TAB PO PRN; +AMVISC PLUS 0.8ML SYRINGE INT OCU ONE; +ATROPINE SULFATE 0.1 MG/ML 5ML SYR IV PRN; +BSS FLUSH ONE; +ENDOCOAT 0.85ML SYRINGE INT OCU ONE; +EpINEphrine INJ 1MG/ML AMP 1 MG/ML AMP ONE; +LACTATED RINGER'S 1000ML 500 ML IV SCH; +LIDOCAINE 4% OP SOLN DROP CHARGE ONE; +LIDOCAINE 4% OP SOLN DROP CHARGE OPR SCH; +LIDOCAINE HCL 1% MPF 2 ML VIAL ONE; -LPR25 PO; +MIDAZOLAM HCL 1 MG/ML 2ML VIAL ONE; +MIX: 4ML BSS 1ML EPI 1:1000 PF TOP ONE; +MOXIFLOXACIN OPH SOLN PER DROP CHARGE ONE; +POVIDONE-IODINE OP SOLN 30 ML BTL ONE; +PROPARACAINE 0.5% OP SOLN PER DROP CHARGE OPR SCH; +TOBRAMYCIN/DEXAMETHASONE OPH OINT PER APPLN CHARGE ONE
--- NOTE | 2017-05-15 06:41 | History & Physical Bridge - SC ---
H&P Re-Evaluation Bridge Note: I have examined the patient, reviewed the History & Physical and in the interval since the performance of the History & Physical I have noted the following changes of clinical significance: No changes noted
[2017-05-15] MEDS: PHENYLEPHRINE HCL 2.5% OP SOLN PER DROP CHARGE OPR SCH ×3 (06:49→06:58)
[2017-05-15] MEDS: CYCLOPENTOLATE HCL 1% OP SOLN PER DROP CHARGE OPR SCH ×3 (06:50→06:59)
[2017-05-15] MEDS: TROPICAMIDE 1% OP SOLN PER DROP CHARGE OPR SCH ×3 (06:50→06:59)
[2017-05-15] MEDS: MOXIFLOXACIN OPH SOLN PER DROP CHARGE OPR SCH ×3 (06:51→07:00)
--- NOTE | 2017-05-15 08:02 | [facility] Post Operative Brief Note ---
Immediate Operative Summary Operative Date May 15, 2017. Pre-Operative Diagnosis Cataract Right Eye Post-Operative Diagnosis Same Procedure(s) Performed Right Cataract Phacoemulsification With Intraocular Lens Implant Surgeon Dr. Rowell Game Programmer Surgeon(s) None Estimated Blood Loss 0 Findings right cataract Specimens None Complication(s) None Disposition
--- NOTE | 2017-05-15 08:04 | [facility] Operative Report ---
Operative Report Date of Service May 15, 2017. Operative Report DATE OF OPERATION: 05/15/17 PREOPERATIVE DIAGNOSIS: Senile nuclear cataract and astigmatism, right eye POSTOPERATIVE DIAGNOSIS: Senile nuclear cataract and astigmatism, right eye PROCEDURE PERFORMED: Phacoemulsification with toric intraocular lens implantation, right eye SURGEON: Dr. Slim Rowell ANESTHESIA: Topical with 1% intracameral lidocaine and monitored anesthesia care COMPLICATIONS: None DESCRIPTION OF PROCEDURE: After positively identifying the patient both verbally and by wristband in the preoperative area, the right eye was marked as the operative eye. Using a Robomarker, the 12 degree axis was marked after placing a drop of proparacaine. The patient was then brought back to the operating room by the anesthesia and nursing staff where they were given a drop of tetracaine and betadine into the operative eye. They were then sterilely prepped and draped in the standard fashion typical for ophthalmic surgery. Steri-strips were placed along the upper eyelids to keep the lashes back, and a lid speculum was placed into the operative eye. At this point, a documented time out was performed with members of the ophthalmology, nursing, and anesthesia staffs all agreeing upon the correct patient, correct location for surgery, correct procedure, and correct type and power of intraocular lens to be implanted. The microscope was then swung into position. Then, a paracentesis wound was made using a sideport blade. Then, in sequence, 1% preservative-free lidocaine followed by Endocoat viscoelastic was injected into the anterior chamber. Next , the main incision was made with a keratome blade in triplanar fashion. A sharp cystotome was introduced into the eye and used to create a tear in the anterior capsule, which was directed into a continuous curvilinear capsulorrhexis using Utrata forceps. Hydrodissection was then performed with BSS on a flat-tip cannula. Next, the phacoemulsification handpiece was introduced into the eye and used to remove the nucleus in a [id number] fashion. This was done without complication and then the irrigation-aspiration handpiece was introduced into the eye and used to remove all remaining cortical and epinuclear material. Amvisc was then injected into the anterior chamber as well as into the capsular bag and using the lens injector system, a [id number] 17.5 D lens, serial number [id number], and expiration date 08/2019 was injected into the capsular bag and rotated into the correct position to correctly line up with the toric marking. Next, the irrigation-aspiration handpiece was used to remove all remaining Amvisc. BSS was used to hydrate the main wound, and then BSS was injected into the paracentesis site to reach physiologic pressure and then the main wound was checked and found to be watertight. The patient was given drops of Vigamox and tobradex ointment into the operative eye, and then the surrounding area was cleaned and dried. A clear plastic shield was placed over the eye and the patient was then sat up and taken from the operating room by the anesthesia staff having tolerated the procedure well and suffering no complications. DISPOSITION: The patient was returned to the recovery room in stable condition. I attest to the content of the Intraoperative Record and any orders documented therein. Any exceptions are noted below.
[2017-05-15 08:05] VITALS: TEMP 36.7
--- NOTE | 2017-05-15 08:05 | Discharge Instructions-SurgCtr ---
Discharge Instructions Date of Service May 15, 2017. Visit Reason for Visit: Right Cataract Discharge Discharge Diagnosis / Problem: right cataract Discharge Goals Goal(s): Decrease discomfort, Improve function Activity Recommendations Activity Limitations: as noted below Anesthesia . Post Anesthesia Instructions: If you have had General Anesthesia or IV Sedation: * Do not drive today. * Resume driving when surgeon permits. * Do not make important decisions or sign legal documents today. * Call surgeon for: 1. Temperature elevations greater than 101 degrees F. 2. Uncontrollable pain. 3. Excessive bleeding. 4. Persistent nausea and vomiting. 5. Medication intolerance (nausea, vomiting or rash). * For nausea and vomiting use only clear liquids such as: tea, soda, bouillon until nausea subsides, then gradually increase diet as tolerated. * If you have any concerns or questions, call your surgeon's office. If physician is unavailable and it is an emergency, call 911 or go to the nearest emergency room. . Instructions / Follow-Up Instructions / Follow-Up ACTIVITY RECOMMENDATIONS: * Light activities. * You may walk outside, read, watch television. * You may notice redness on the white part of the eye and some blurry vision - this is normal. MEDICATIONS: Resume previous medications unless instructed otherwise by your surgeon. Start all eye drops at 10 am today: * Eye drops (today): Prednisone - one drop in operative eye every 2 hours while awake Ofloxacin - one drop in operative eye every 2 hours while awake Bromfenac - one drop in operative eye daily SPECIAL CARE INSTRUCTIONS: * Tape plastic shield over eye to sleep at night. Call your doctor at with any concerns or problems. FOLLOW UP VISIT: Follow-up with Dr Rowell at [place] office as scheduled. Diet Recommendations Home Diet: no limitations Procedures Procedures Performed: Right Cataract Phacoemulsification With Intraocular Lens Implant Pending Studies Studies pending at discharge: no Medical Emergencies . Who to Call and When: Medical Emergencies: If at any time you feel your situation is an emergency, please call 911 immediately. . Non-Emergent Contact Non-Emergency issues call your: Surgeon . . "Provider Documentation" section prepared by Slim Rowell. .
[2017-05-15 08:25] VITALS: BP 111/71; PULSE 79; O2SAT 94
--- NOTE | 2017-05-15 08:35 | Anesthesia Progress Nt - [facility] ---
Anesthesia Post Op Note Date & Time May 15, 2017 at 08:34 Vital Signs Pain Intensity: 0 Vital Signs Past 12 Hours Date Time Temp Pulse Resp B/P (MAP) Pulse Ox O2 Delivery O2 Flow Rate FiO2 05/15/17 08:25 79 16 111/71 (84) 94 Room Air 05/15/17 08:05 36.7 78 16 102/66 (78) 95 Room Air 05/15/17 06:38 36.6 89 20 98/64 (75) 95 Room Air Notes Mental Status: alert / awake / arousable, participated in evaluation Pt Amnestic to Procedure: Yes Nausea / Vomiting: adequately controlled Pain: adequately controlled Airway Patency, RR, SpO2: stable & adequate BP & HR: stable & adequate Hydration State: stable & adequate Anesthetic Complications: no major complications apparent
== END | disposition home or self-care (01) ==
LOC: X.SURG 06:23
PROVIDERS: ATTEND Ophthalmology
DX: H25.11 Age-related nuclear cataract, right eye (principal); I10 Essential (primary) hypertension; Z98.890 Other specified postprocedural states; Z68.28 Body mass index [BMI] 28.0-28.9, adult; Z96.652 Presence of left artificial knee joint; Z87.891 Personal history of nicotine dependence

== ENCOUNTER → 2017-05-20 | Outpatient (CLI) | payer OTHER ==
[~2017-05-20] MED LIST changes: -500ML BSS 0.3ML EPI 1:1000PF IRRIG ONE; -ACETAMINOPHEN 325 MG TAB PO PRN; -AMVISC PLUS 0.8ML SYRINGE INT OCU ONE; -ATROPINE SULFATE 0.1 MG/ML 5ML SYR IV PRN; -BSS FLUSH ONE; -ENDOCOAT 0.85ML SYRINGE INT OCU ONE; -EpINEphrine INJ 1MG/ML AMP 1 MG/ML AMP ONE; -LACTATED RINGER'S 1000ML 500 ML IV SCH; -LIDOCAINE 4% OP SOLN DROP CHARGE ONE; -LIDOCAINE 4% OP SOLN DROP CHARGE OPR SCH; -LIDOCAINE HCL 1% MPF 2 ML VIAL ONE; -MIDAZOLAM HCL 1 MG/ML 2ML VIAL ONE; -MIX: 4ML BSS 1ML EPI 1:1000 PF TOP ONE; -MOXIFLOXACIN OPH SOLN PER DROP CHARGE ONE; -POVIDONE-IODINE OP SOLN 30 ML BTL ONE; -PROPARACAINE 0.5% OP SOLN PER DROP CHARGE OPR SCH; -TOBRAMYCIN/DEXAMETHASONE OPH OINT PER APPLN CHARGE ONE
[2017-05-20 16:03] LABS: CHOLESTEROL/HDL RATIO 2.8
== END | disposition home or self-care (01) ==
LOC: C.LAB 16:19
PROVIDERS: ATTEND Internal Medicine
DX: E78.00 Pure hypercholesterolemia, unspecified (principal)

== ENCOUNTER → 2017-05-29 | Day surgery (SDC) | payer OTHER ==
[2017-05-27 09:03] VITALS: Ht 154.9 cm; Wt 67.3 kg
[~2017-05-29] VITALS: Ht 154.9 cm; Wt 67.3 kg
[~2017-05-29] MED LIST changes: +500ML BSS 0.3ML EPI 1:1000PF IRRIG ONE; +ACETAMINOPHEN 325 MG TAB PO PRN; +AMVISC PLUS 0.8ML SYRINGE INT OCU ONE; +ATROPINE SULFATE 0.1 MG/ML 5ML SYR IV PRN; +BSS FLUSH ONE; +ENDOCOAT 0.85ML SYRINGE INT OCU ONE; +EpHEDrine SULFATE INJ 50 MG/ML AMP IV PRN; +EpINEphrine INJ 1MG/ML AMP 1 MG/ML AMP ONE; +LACTATED RINGER'S 1000ML 500 ML IV SCH; +LIDOCAINE 4% OP SOLN DROP CHARGE ONE; +LIDOCAINE 4% OP SOLN DROP CHARGE OPL SCH; +LIDOCAINE HCL 1% MPF 2 ML VIAL ONE; +MIDAZOLAM HCL 1 MG/ML 2ML VIAL ONE; +MIX: 4ML BSS 1ML EPI 1:1000 PF TOP ONE; +MOXIFLOXACIN OPH SOLN PER DROP CHARGE ONE; +POVIDONE-IODINE OP SOLN 30 ML BTL ONE; +PROPARACAINE 0.5% OP SOLN PER DROP CHARGE OPL SCH; +TOBRAMYCIN/DEXAMETHASONE OPH OINT PER APPLN CHARGE ONE
[2017-05-29] MEDS: PHENYLEPHRINE HCL 2.5% OP SOLN PER DROP CHARGE OPL SCH ×3 (06:35→06:45)
[2017-05-29] MEDS: TROPICAMIDE 1% OP SOLN PER DROP CHARGE OPL SCH ×3 (06:36→06:46)
[2017-05-29] MEDS: CYCLOPENTOLATE HCL 1% OP SOLN PER DROP CHARGE OPL SCH ×3 (06:37→06:47)
[2017-05-29] MEDS: MOXIFLOXACIN OPH SOLN PER DROP CHARGE OPL SCH ×3 (06:38→06:48)
--- NOTE | 2017-05-29 07:35 | [facility] Post Operative Brief Note ---
Immediate Operative Summary Operative Date May 29, 2017. Pre-Operative Diagnosis Cataract Left Eye Post-Operative Diagnosis Same Procedure(s) Performed Left Cataract Phacoemulsification With Intraocular Lens Implant Surgeon Dr. Rowell Swamper Surgeon(s) None Estimated Blood Loss 0 Findings left cataract Specimens 0 Complication(s) None Disposition
--- NOTE | 2017-05-29 07:36 | [facility] Operative Report ---
Operative Report Date of Service May 29, 2017. Operative Report DATE OF OPERATION: 05/29/17 PREOPERATIVE DIAGNOSIS: Senile nuclear cataract, left eye POSTOPERATIVE DIAGNOSIS: Senile nuclear cataract, left eye PROCEDURE PERFORMED: Phacoemulsification with intraocular lens implantation, left eye SURGEON: Dr. Slim Rowell ANESTHESIA: Topical with 1% intracameral lidocaine and monitored anesthesia care COMPLICATIONS: None DESCRIPTION OF PROCEDURE: After positively identifying the patient both verbally and by wristband in the preoperative area, the left eye was marked as the operative eye. The patient was then brought back to the operating room by the anesthesia and nursing staff where they were given a drop of Lidocaine and betadine into the operative eye. They were then sterilely prepped and draped in the standard fashion typical for ophthalmic surgery. Steri-strips were placed along the upper eyelids to keep the lashes back, and a lid speculum was placed into the operative eye. At this point, a documented time out was performed with members of the ophthalmology, nursing, and anesthesia staffs all agreeing upon the correct patient, correct location for surgery, correct procedure, and correct type and power of intraocular lens to be implanted. The microscope was then swung into position. First, a paracentesis wound was made using a sideport blade. Then, in sequence, 1% preservative-free lidocaine followed by Endocoat viscoelastic was injected into the anterior chamber. Next , the main incision was made with a keratome blade in triplanar fashion. A sharp cystotome was introduced into the eye and used to create a tear in the anterior capsule, which was directed into a continuous curvilinear capsulorrhexis using Utrata forceps. Hydrodissection was then performed with BSS on a flat-tip cannula. Next, the phacoemulsification handpiece was introduced into the eye and used to remove the nucleus in a [id number] fashion. This was done without complication and then the irrigation-aspiration handpiece was introduced into the eye and used to remove all remaining cortical and epinuclear material. Amvisc was then injected into the anterior chamber as well as into the capsular bag and using the lens injector system, an MX60 17.5 D lens, serial number [id number], and expiration date05/2018 was injected into the capsular bag and rotated into the correct position. Next, the irrigation- aspiration handpiece was used to remove all remaining Amvisc. BSS was used to hydrate the main wound, and then BSS was injected into the paracentesis site to reach physiologic pressure and then the main wound was checked and found to be watertight. The patient was given drops of Vigamox and Tobradex ointment into the operative eye, and then the surrounding area was cleaned and dried. A clear plastic shield was placed over the eye and the patient was then sat up and taken from the operating room by the anesthesia staff having tolerated the procedure well and suffering no complications. DISPOSITION: The patient was returned to the recovery room in stable condition. I attest to the content of the Intraoperative Record and any orders documented therein. Any exceptions are noted below.
--- NOTE | 2017-05-29 07:36 | Discharge Instructions-SurgCtr ---
Discharge Instructions Date of Service May 29, 2017. Visit Reason for Visit: Cataract Left Eye Discharge Discharge Diagnosis / Problem: left cataract Discharge Goals Goal(s): Decrease discomfort, Improve function Activity Recommendations Activity Limitations: as noted below Anesthesia . Post Anesthesia Instructions: If you have had General Anesthesia or IV Sedation: * Do not drive today. * Resume driving when surgeon permits. * Do not make important decisions or sign legal documents today. * Call surgeon for: 1. Temperature elevations greater than 101 degrees F. 2. Uncontrollable pain. 3. Excessive bleeding. 4. Persistent nausea and vomiting. 5. Medication intolerance (nausea, vomiting or rash). * For nausea and vomiting use only clear liquids such as: tea, soda, bouillon until nausea subsides, then gradually increase diet as tolerated. * If you have any concerns or questions, call your surgeon's office. If physician is unavailable and it is an emergency, call 911 or go to the nearest emergency room. . Instructions / Follow-Up Instructions / Follow-Up ACTIVITY RECOMMENDATIONS: * Light activities. * You may walk outside, read, watch television. * You may notice redness on the white part of the eye and some blurry vision - this is normal. MEDICATIONS: Resume previous medications unless instructed otherwise by your surgeon. Start all eye drops at 9:30 am today: * Eye drops (today): Prednisone - one drop in operative eye every 2 hours while awake Ofloxacin - one drop in operative eye every 2 hours while awake Bromfenac - one drop in operative eye daily SPECIAL CARE INSTRUCTIONS: * Tape plastic shield over eye to sleep at night. Call your doctor at with any concerns or problems. FOLLOW UP VISIT: Follow-up with Dr Rowell at [facility] as scheduled. Diet Recommendations Home Diet: no limitations Procedures Procedures Performed: Left Cataract Phacoemulsification With Intraocular Lens Implant Pending Studies Studies pending at discharge: no Medical Emergencies . Who to Call and When: Medical Emergencies: If at any time you feel your situation is an emergency, please call 911 immediately. . Non-Emergent Contact Non-Emergency issues call your: Surgeon . . "Provider Documentation" section prepared by Slim Rowell. .
[2017-05-29 07:38] VITALS: TEMP 36.7
[2017-05-29 07:52] VITALS: BP 108/73; PULSE 78; O2SAT 98
--- NOTE | 2017-05-29 08:01 | Anesthesiology Progress Note ---
Anesthesia Post Op Note Date & Time May 29, 2017 at 08:01 Vital Signs Pain Intensity: 0 Vital Signs Past 12 Hours Date Time Temp Pulse Resp B/P (MAP) Pulse Ox O2 Delivery O2 Flow Rate FiO2 05/29/17 07:52 78 16 108/73 (85) 98 Room Air 05/29/17 07:38 36.7 82 16 125/63 (83) 96 Room Air 05/29/17 06:26 36.5 81 16 102/62 (75) 96 Room Air Notes Mental Status: alert / awake / arousable, participated in evaluation Nausea / Vomiting: adequately controlled Pain: adequately controlled Airway Patency, RR, SpO2: stable & adequate BP & HR: stable & adequate Hydration State: stable & adequate Anesthetic Complications: no major complications apparent
== END | disposition home or self-care (01) ==
LOC: X.SURG 06:10
PROVIDERS: ATTEND Ophthalmology
DX: H25.12 Age-related nuclear cataract, left eye (principal); Z85.3 Personal history of malignant neoplasm of breast; E78.00 Pure hypercholesterolemia, unspecified; I10 Essential (primary) hypertension; Z87.891 Personal history of nicotine dependence; E78.5 Hyperlipidemia, unspecified; C90.01 Multiple myeloma in remission; M19.90 Unspecified osteoarthritis, unspecified site

== ENCOUNTER → 2017-07-08 | Outpatient (CLI) | payer OTHER ==
[~2017-07-08] MED LIST changes: -500ML BSS 0.3ML EPI 1:1000PF IRRIG ONE; -ACETAMINOPHEN 325 MG TAB PO PRN; -AMVISC PLUS 0.8ML SYRINGE INT OCU ONE; +ATOR10TA82 PO; -ATOR10TA88 PO; -ATROPINE SULFATE 0.1 MG/ML 5ML SYR IV PRN; -BSS FLUSH ONE; -ENDOCOAT 0.85ML SYRINGE INT OCU ONE; -EpHEDrine SULFATE INJ 50 MG/ML AMP IV PRN; -EpINEphrine INJ 1MG/ML AMP 1 MG/ML AMP ONE; -LACTATED RINGER'S 1000ML 500 ML IV SCH; -LIDOCAINE 4% OP SOLN DROP CHARGE ONE; -LIDOCAINE 4% OP SOLN DROP CHARGE OPL SCH; -LIDOCAINE HCL 1% MPF 2 ML VIAL ONE; -MIDAZOLAM HCL 1 MG/ML 2ML VIAL ONE; -MIX: 4ML BSS 1ML EPI 1:1000 PF TOP ONE; -MOXIFLOXACIN OPH SOLN PER DROP CHARGE ONE; -POVIDONE-IODINE OP SOLN 30 ML BTL ONE; -PROPARACAINE 0.5% OP SOLN PER DROP CHARGE OPL SCH; -TOBRAMYCIN/DEXAMETHASONE OPH OINT PER APPLN CHARGE ONE
== END | disposition home or self-care (01) ==
LOC: C.LAB 13:10
PROVIDERS: ATTEND Internal Medicine
DX: E55.9 Vitamin D deficiency, unspecified (principal)

== ENCOUNTER → 2017-11-15 | Outpatient (CLI) | payer OTHER ==
--- NOTE | 2017-11-18 07:45 | MAMMOGRAPHY REPORT ---
BILATERAL DIGITAL SCREENING MAMMOGRAM TOMOSYNTHESIS WITH CAD: 11/15/2017 CLINICAL HISTORY: Routine screening. Patient has no complaints. TECHNIQUE: Breast tomosynthesis in addition to standard 2D mammography was performed. Current study was also evaluated with a Computer Aided Detection (CAD) system. COMPARISON: Comparison is made to exams dated: 04/11/2016 mammogram, 03/21/2015 mammogram, 09/07/2014 jazmin mogram, 03/03/2014 mammogram, 10/08/2013 mammogram, and 04/15/2013 localization - [facility] enter. BREAST COMPOSITION: The tissue of both breasts is heterogeneously dense, which may obscure small mas ses. FINDINGS: No suspicious masses, calcifications, or areas of architectural distortion are noted in ei ther breast. There has been no significant interval change compared to prior exams. There are stable postsurgical changes in the left upper outer posterior breast from prior lumpectomy, including densi ty, architectural distortion, and surgical clips at the lumpectomy bed. IMPRESSION: ACR BI-RADS CATEGORY 2: BENIGN There is no mammographic evidence of malignancy. A 1 year screening mammogram is recommended. The pa tient will receive written notification of the results. Approximately 10% of breast cancers are not detected with mammography. A negative mammographic report should not delay biopsy if a clinically suggestive mass is present. Carolina Beasley M.D. ah/:11/15/2017 16:59:10 Radiotelephone Operator: Racheal YOUSSEF)(Rocio), [facility] letter sent: Normal 1/2 BI-RADS Code: ACR BI-RADS Category 2: Benign
== END | disposition home or self-care (01) ==
LOC: C.MAMM 10:52
PROVIDERS: ATTEND Obstetrics & Gynecology
DX: Z12.31 Encounter for screening mammogram for malignant neoplasm of breast (principal); Z85.3 Personal history of malignant neoplasm of breast

== ENCOUNTER → 2017-11-18 | Outpatient (CLI) | payer OTHER | END | disposition home or self-care (01) | LOC: C.RDSM 17:33 | PROVIDERS: ATTEND Physical Medicine & Rehabilitation Sports Medicine | DX: S72.002A Fracture of unspecified part of neck of left femur, initial encounter for closed fracture (principal); X58.XXXA Exposure to other specified factors, initial encounter; S72.142D Displaced intertrochanteric fracture of left femur, subsequent encounter for closed fracture with routine healing; X58.XXXD Exposure to other specified factors, subsequent encounter; Z96.652 Presence of left artificial knee joint ==

== ENCOUNTER → 2018-02-24 | Outpatient (CLI) | payer OTHER ==
[~2018-02-24] MED LIST changes: -ANAS1TAB19 PO; +ANAS1TAB59 PO
--- NOTE | 2018-02-24 14:00 | DIAGNOSTIC IMAGING REPORT ---
MANDIBLE MIN 4 VIEWS ROUTINE CLINICAL HISTORY: MYELOMA. Assess for fracture or osteonecrosis within the mandible.. COMPARISON STUDY: Skeletal survey 01/15/2018. FINDINGS: Multiple tiny lytic lesions seen scattered throughout the calvarium consistent with the patient's history of multiple myeloma. There are also a few scattered lytic lesions within the mandible. There is no aneurysm clips seen within the suprasellar location. Right-sided post anatomy changes are noted. No fracture or dislocation within the mandible. No evidence for osteonecrosis. IMPRESSION: 1. No fracture, dislocation, or osteonecrosis within the mandible. 2. Multiple scattered lytic lesions seen throughout the visualized osseous structures consistent with the patient's history of multiple myeloma. Electronically signed by: Rian Swartz M.D. 02/24/2018 1:59 PM Dictated Date/Time: 02/24/2018 1:57 PM
== END | disposition home or self-care (01) ==
LOC: C.RAD 13:05
PROVIDERS: ATTEND Nurse Practitioner Family
DX: C90.00 Multiple myeloma not having achieved remission (principal)